=== PATIENT | male | born 1965 | race Caucasian/White ===

== ENCOUNTER 2017-09-19 05:53 | Observation (INO) | payer BC ==
[2017-09-19 06:45] LABS: Basophils # (A) 0.1 k/uL (0-0.2); Basophils % (A) 1 %; CH 30.8; CHCM 34.3; Eosinophils # (A) 0.2 k/uL (0-0.7); Eosinophils % (A) 2 %; HCT 47.9 % (39.0-53.0); HDW 2.45; HGB 15.9 gm/dL (13.0-17.5); Luc # (Auto) 0.11; Luc % (Auto) 1; Lymphocytes # (A) 1.8 k/uL (1.0-4.8); Lymphocytes % (A) 21 %; MCHC 33.3 g/dL (31.0-37.0); MCV 90.3 fL (80.0-100.0); Mean Platelet Volume 8.4; Monocytes # (A) 0.5 k/uL (0-1.0); Monocytes % (A) 6 %; Neutrophils # (A) 6.2 k/uL (1.3-7.7); Neutrophils % (A) 70 %; RDW 14.4 % (11.5-15.5); WBC 8.8 k/uL (3.8-10.6); WBC (Perox) 8.74
--- NOTE | 2017-09-19 06:45 | ED ---
Anxiety HPI - General Source: patient Mode of arrival: wheelchair - History of Present Illness MD Complaint: anxiety, other Onset/Timin -: hour(s) Symptoms: extremity numbness/tingling, sense of impending doom Place: home Previous History of Same: Yes Severity: moderate Quality: constant Provoking factors: none known Improves With: nothing Worsens With: nothing Associated symptoms: chest pain <Alok Ibrahim - Last Filed: 09/19/17 06:41> <Nikolay Varela - Last Filed: 09/19/17 09:42> - General Chief Complaint: Anxiety Stated Complaint: Chest Pain Time Seen by Provider: 09/19/17 06:21 - History of Present Illness Initial Comments: this patient is a 52-year-old man who presents with complaint that he feels like he is having an anxiety attack. He states his symptoms started a little after 4 AM and he woke with them. He states that he is feeling shaky. He feels nervous. He states that he is been having this intermittently for a number of days previous. 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 the patient came here to be seen because he had similar symptoms one time and was told that he was having a heart attack. The patient denies anginal type symptoms, including no diaphoresis, dyspnea, nausea or vomiting, lightheadedness or syncope. He does feel like his chest is a little tight. He did take an Ativan at home without any change in symptoms. (Alok Ibrahim) - Related Data Home Medications: Home Medications Medication Instructions Recorded Confirmed LORazepam [Ativan] 2 mg PO BID PRN 12/29/15 09/19/17 Valsartan [Diovan] 160 mg PO DAILY 12/29/15 09/19/17 Atorvastatin [Lipitor] 40 mg PO HS 09/19/17 09/19/17 Metoprolol Tartrate [Lopressor] 50 mg PO DAILY 09/19/17 09/19/17 Allergies/Adverse Reactions: Allergies Allergy/AdvReac Type Severity Reaction Status Date / Time No Known Allergies Allergy Verified 09/19/17 07:33 Review of Systems ROS Other: All systems not noted in ROS Statement are negative. Constitutional: Denies: fever, chills Respiratory: Denies: cough, dyspnea, wheezes Cardiovascular: Reports: as per HPI, chest pain. Denies: palpitations, dyspnea on exertion, orthopnea, syncope Gastrointestinal: Denies: abdominal pain, nausea, vomiting Genitourinary: Denies: dysuria, hematuria Musculoskeletal: Denies: back pain Skin: Denies: rash Neurological: Denies: headache, weakness, numbness Psychiatric: Reports: anxiety <Alok Ibrahim - Last Filed: 09/19/17 06:41> ROS Other: All systems not noted in ROS Statement are negative. <VarelaNikolay - Last Filed: 09/19/17 09:42> ROS Statement: Those systems with pertinent positive or pertinent negative responses have been documented in the HPI. Past Medical History Past Medical History: Hyperlipidemia, Hypertension, Myocardial Infarction ([place]) Additional Past Medical History / Comment(s): MIGRAINES, STRESS TEST X2 WNL, SINUS PROBLEMS, UTI, SCOLIOSIS, CHRONIC BACK PAIN. Last Myocardial Infarction Date:: History of Any Multi-Drug Resistant Organisms: None Reported Past Surgical History: Heart Catheterization With Stent, Orthopedic Surgery Additional Past Surgical History / Comment(s): RT 5TH TOE SX CUT BONE AND RAISED IT UP, HEART CATH 3 STENTS. Past Anesthesia/Blood Transfusion Reactions: No Reported Reaction Date of Last Stent Placement:: 2013 Past Psychological History: Anxiety Smoking Status: Former smoker Past Alcohol Use History: Rare Past Drug Use History: Marijuana - Past Family History Father Family Medical History: Cancer Additional Family Medical History / Comment(s): LUNG CANCER Mother Family Medical History: Coronary Artery Disease (CAD), Diabetes Mellitus Additional Family Medical History / Comment(s): STENTS <Alok Ibrahim - Last Filed: 09/19/17 06:41> General Exam Limitations: no limitations General appearance: alert, in no apparent distress, anxious Head exam: Present: atraumatic, normocephalic Eye exam: Present: normal appearance. Absent: scleral icterus, conjunctival injection Respiratory exam: Present: normal lung sounds bilaterally. Absent: respiratory distress, wheezes, rales, rhonchi, stridor Cardiovascular Exam: Present: regular rate, normal rhythm, normal heart sounds. Absent: systolic murmur, diastolic murmur, rubs, gallop GI/Abdominal exam: Present: soft. Absent: distended, tenderness, guarding, rebound, mass Extremities exam: Present: normal inspection, normal capillary refill. Absent: pedal edema, calf tenderness Back exam: Absent: CVA tenderness (R), CVA tenderness (L) Neurological exam: Present: alert Psychiatric exam: Present: anxious Skin exam: Present: warm, dry, intact, normal color. Absent: rash <YanfabyAlok - Last Filed: 09/19/17 06:41> Vital Signs 09/19/17 09/19/17 09/19/17 05:57 06:45 08:00 Temperature 98.3 F Pulse Rate 99 91 90 Respiratory 20 18 18 Rate Blood Pressure 158/89 131/74 124/75 O2 Sat by Pulse 96 95 98 Oximetry 09/19/17 09:00 Temperature 98.0 F Pulse Rate 84 Respiratory 18 Rate Blood Pressure 116/74 O2 Sat by Pulse 98 Oximetry Medical Decision Making - EKG Data -: EKG Interpreted by [place] EKG shows normal: sinus rhythm, axis (normal), intervals (normal), QRS complexes (normal), ST-T waves (normal) Rate: tachycardia (rate approximately 105 bpm) <Alok Ibrahim - Last Filed: 09/19/17 06:41> - Lab Data Result diagrams: 09/19/17 06:00 09/19/17 06:00 <Nikolay Varela - Last Filed: 09/19/17 09:42> - Medical Decision Making Chest x-ray showed no acute abnormality. I will begin to reevaluate the patient patient stated that these are the exact symptoms she had when he had his previous heart attack and he required 3 stents at that time. I spoke with Dr. Bales I admitted the patient I wrote admitting orders I consult to cardiology. I started the patient on heparin. I continued heparin Nitropaste and aspirin on the floor. (Nikolay Varela) - Lab Data Lab Results 09/19/17 09/19/17 09/19/17 Range/Units 06:00 06:00 06:00 WBC 8.8 (3.8-10.6) k/uL RBC 5.30 (4.30-5.90) m/uL Hgb 15.9 (13.0-17.5) gm/dL Hct 47.9 (39.0-53.0) % MCV 90.3 (80.0-100.0) fL MCH 30.0 (25.0-35.0) pg MCHC 33.3 (31.0-37.0) g/dL RDW 14.4 (11.5-15.5) % Plt Count 351 (150-450) k/uL Neutrophils % 70 % Lymphocytes % 21 % Monocytes % 6 % Eosinophils % 2 % Basophils % 1 % Neutrophils # 6.2 (1.3-7.7) k/uL Lymphocytes # 1.8 (1.0-4.8) k/uL Monocytes # 0.5 (0-1.0) k/uL Eosinophils # 0.2 (0-0.7) k/uL Basophils # 0.1 (0-0.2) k/uL PT 10.4 (9.0-12.0) sec INR 1.0 (<1.2) APTT 24.9 (22.0-30.0) sec D-Dimer 0.37 (<0.60) mg/L FEU Sodium 138 (137-145) mmol/L Potassium 3.9 (3.5-5.1) mmol/L Chloride 103 (98-107) mmol/L Carbon Dioxide 22 (22-30) mmol/L Anion Gap 13 mmol/L BUN 9 (9-20) mg/dL Creatinine 1.06 (0.66-1.25) mg/dL Est GFR (MDRD) Af Amer >60 (>60 ml/min/1.73 sqM) Est GFR (MDRD) Non-Af >60 (>60 ml/min/1.73 sqM) Glucose 187 H (74-99) mg/dL Calcium 9.5 (8.4-10.2) mg/dL Magnesium 1.8 (1.6-2.3) mg/dL Total Bilirubin 0.6 (0.2-1.3) mg/dL AST 26 (17-59) U/L ALT 38 (21-72) U/L Alkaline Phosphatase 136 H (38-126) U/L Troponin I (0.000-0.034) ng/mL Total Protein 7.2 (6.3-8.2) g/dL Albumin 4.4 (3.5-5.0) g/dL 09/19/17 Range/Units 06:00 WBC (3.8-10.6) k/uL RBC (4.30-5.90) m/uL Hgb (13.0-17.5) gm/dL Hct (39.0-53.0) % MCV (80.0-100.0) fL MCH (25.0-35.0) pg MCHC (31.0-37.0) g/dL RDW (11.5-15.5) % Plt Count (150-450) k/uL Neutrophils % % Lymphocytes % % Monocytes % % Eosinophils % % Basophils % % Neutrophils # (1.3-7.7) k/uL Lymphocytes # (1.0-4.8) k/uL Monocytes # (0-1.0) k/uL Eosinophils # (0-0.7) k/uL Basophils # (0-0.2) k/uL PT (9.0-12.0) sec INR (<1.2) APTT (22.0-30.0) sec D-Dimer (<0.60) mg/L FEU Sodium (137-145) mmol/L Potassium (3.5-5.1) mmol/L Chloride (98-107) mmol/L Carbon Dioxide (22-30) mmol/L Anion Gap mmol/L BUN (9-20) mg/dL Creatinine (0.66-1.25) mg/dL Est GFR (MDRD) Af Amer (>60 ml/min/1.73 sqM) Est GFR (MDRD) Non-Af (>60 ml/min/1.73 sqM) Glucose (74-99) mg/dL Calcium (8.4-10.2) mg/dL Magnesium (1.6-2.3) mg/dL Total Bilirubin (0.2-1.3) mg/dL AST (17-59) U/L ALT (21-72) U/L Alkaline Phosphatase (38-126) U/L Troponin I <0.012 (0.000-0.034) ng/mL Total Protein (6.3-8.2) g/dL Albumin (3.5-5.0) g/dL Critical Care Time Critical Care Time: Yes Total Critical Care Time: 35 <Nikolay Varela - Last Filed: 09/19/17 09:42> Disposition <Alok Ibrahim - Last Filed: 09/19/17 06:41> Time of Disposition: 08:05 <Nikolay Varela - Last Filed: 09/19/17 09:42> Clinical Impression: Unstable angina Disposition: ADMITTED IP TO THIS HOSP
[2017-09-19 06:47] VITALS: RESP 18
[2017-09-19 06:53] LABS: ALT 38 U/L (21-72); AST 26 U/L (17-59); Alkaline Phosphatase 136 U/L (38-126); Anion Gap 13 mmol/L; Blood Urea Nitrogen 9 mg/dL (9-20); Calcium 9.5 mg/dL (8.4-10.2); Carbon Dioxide 22 mmol/L (22-30); Chloride 103 mmol/L (98-107); Glucose 187 mg/dL (74-99); Magnesium 1.8 mg/dL (1.6-2.3); Non-African American GFR(MDRD) >60 (>60 ml/min/1.73 sqM); Potassium 3.9 mmol/L (3.5-5.1); Sodium 138 mmol/L (137-145); Total Bilirubin 0.6 mg/dL (0.2-1.3); Total Protein 7.2 g/dL (6.3-8.2)
[2017-09-19 06:54] LABS: Partial Thromboplastin Time 24.9 sec (22.0-30.0); Prothrombin Time 10.4 sec (9.0-12.0)
--- NOTE | 2017-09-19 07:18 | XR ---
EXAM: XR Chest, 2 Views. CLINICAL HISTORY: Reason: Chest Pain TECHNIQUE: Frontal and lateral views of the chest. COMPARISON: 12/29/15 FINDINGS: Lungs: Unremarkable. No consolidation. Pleural spaces: Unremarkable. No pneumothorax. Heart: Unremarkable. No cardiomegaly. Mediastinum: Unremarkable. Bones: Unremarkable. No acute fracture. IMPRESSION: No acute findings in the chest
[2017-09-19] MEDS ORDERED: ASPIRIN 81 MG PO STA (08:09)
[2017-09-19] MEDS ORDERED: HEPARIN SODIUM,PORCINE 5,000 UNIT/ML 1 ML VIAL IV ONE (08:10)
[2017-09-19] MEDS ORDERED: NITROGLYCERIN OINT 1 INCH/GM PACKET TOPICAL STA (08:10)
[2017-09-19] MEDS ORDERED: HEPARIN SODIUM,PORCINE/D5W PMX 25,000 UNIT in DEXTROSE/WATER 1 500ML.BAG IV SCH (08:15)
[2017-09-19] MEDS ORDERED: NITROGLYCERIN SL TABS 0.4 MG TAB SUBLINGUAL PRN (08:54)
[2017-09-19] MEDS ORDERED: ASPIRIN 325 MG TAB PO SCH (09:00)
[2017-09-19 10:25] VITALS: BMI 24.3
[2017-09-19] MEDS ORDERED: NITROGLYCERIN OINT 1 INCH/GM PACKET TOPICAL SCH (12:00)
[2017-09-19 12:47] LABS: Creatine Kinase 122 U/L (55-170)
[2017-09-19] MEDS ORDERED: LORazepam 1 MG TAB PO PRN (12:59)
[2017-09-19 13:00] LABS: Creatine Kinase MB 1.2 ng/mL (0.0-2.4); Troponin I <0.012 ng/mL (0.000-0.034)
[2017-09-19] MEDS ORDERED: INFLUENZA VACCINE (6 MOS+) 60 MCG/0.5 ML SYRINGE IM ONE (14:54)
--- NOTE | 2017-09-19 16:04 | P.HPIM ---
History of Present Illness 52-year-old man came in with complaints of anxiety. Denied any chest pain patient [place] little anxious and nervous and the patient last and when he had similar symptoms was found to have microinfarction because of which patient came to ER. Patient was evaluated by cardiology second set of troponin will be obtained patient has sinus tachycardia and EKG which resolved now. Patient denied any fever, chills, nausea, vomiting patient is chest pain completely resolved after that episode patient was not diaphoretic but there is a shaking at that time denied any shortness of breath patient chest pain is nonpleuritic not associated with food. Review of Systems REVIEW OF SYSTEMS: CONSTITUTIONAL: No fever, no malaise, no fatigue. HEENT: No recent visual problems or hearing problems. Denied any sore throat. CARDIOVASCULAR: No chest pain, orthopnea, PND, no palpitations, no syncope. PULMONARY: No shortness of breath, no cough, no hemoptysis. GASTROINTESTINAL: No diarrhea, no nausea, no vomiting, no abdominal pain. Normoactive bowel sounds. NEUROLOGICAL: No headaches, no weakness, no numbness. HEMATOLOGICAL: Denies any bleeding or petechiae. GENITOURINARY: Denies any burning micturition, frequency, or urgency. MUSCULOSKELETAL/RHEUMATOLOGICAL: Denies any joint pain, swelling, or any muscle pain. ENDOCRINE: Denies any polyuria or polydipsia. The rest of the 14-point review of systems is negative. Past Medical History Past Medical History: Hyperlipidemia, Hypertension, Myocardial Infarction ([place]) Additional Past Medical History / Comment(s): MIGRAINES, STRESS TEST X2 WNL, SINUS PROBLEMS, UTI, SCOLIOSIS, CHRONIC BACK PAIN. Last Myocardial Infarction Date:: History of Any Multi-Drug Resistant Organisms: None Reported Past Surgical History: Heart Catheterization With Stent, Orthopedic Surgery Additional Past Surgical History / Comment(s): RT 5TH TOE SX CUT BONE AND RAISED IT UP, HEART CATH 3 STENTS. neck fusion Past Anesthesia/Blood Transfusion Reactions: No Reported Reaction Date of Last Stent Placement:: 2013 Past Psychological History: Anxiety Smoking Status: Former smoker Past Alcohol Use History: Rare Additional Past Alcohol Use History / Comment(s): STARTED SMOKING AT GE 18 SMOKED 1 PPD, QUIT 2000 Past Drug Use History: Marijuana Additional Drug Use History / Comment(s): MARIJUANA LAST USED -TODAY - Past Family History Father Family Medical History: Cancer Additional Family Medical History / Comment(s): LUNG CANCER Mother Family Medical History: Coronary Artery Disease (CAD), Diabetes Mellitus Additional Family Medical History / Comment(s): STENTS Medications and Allergies Home Medications Medication Instructions Recorded Confirmed Type LORazepam [Ativan] 2 mg PO BID PRN 12/29/15 09/19/17 History Valsartan [Diovan] 160 mg PO DAILY 12/29/15 09/19/17 History Atorvastatin [Lipitor] 40 mg PO HS 09/19/17 09/19/17 History Sertraline [Zoloft] 50 mg PO DAILY 09/19/17 09/19/17 History Allergies Allergy/AdvReac Type Severity Reaction Status Date / Time No Known Allergies Allergy Verified 09/19/17 07:33 Physical Exam Vitals: Vital Signs Temp Pulse Pulse Resp BP BP Pulse Ox 09/19/17 11:06 98 09/19/17 09:54 98.0 F 88 18 118/70 95 09/19/17 09:00 98.0 F 84 18 116/74 98 09/19/17 08:00 90 18 124/75 98 09/19/17 06:45 91 18 131/74 95 09/19/17 05:57 98.3 F 99 20 158/89 96 Intake and Output 09/19/17 09/19/17 09/19/17 06:59 14:59 22:59 Intake Total 360 Balance 360 Intake: Oral 360 Other: Voiding Method Toilet # Voids 1 Weight 83.915 kg 86 kg Patient Weight 09/20/17 06:59 Weight 86 kg PHYSICAL EXAMINATION: GENERAL: The patient is alert and oriented x3, not in any acute distress. Well developed, well nourished. HEENT: Pupils are round and equally reacting to light. EOMI. No scleral icterus. No conjunctival pallor. Normocephalic, atraumatic. No pharyngeal erythema. No thyromegaly. CARDIOVASCULAR: S1 and S2 present. No murmurs, rubs, or gallops. PULMONARY: Chest is clear to auscultation, no wheezing or crackles. ABDOMEN: Soft, nontender, nondistended, normoactive bowel sounds. No palpable organomegaly. MUSCULOSKELETAL: No joint swelling or deformity. EXTREMITIES: No cyanosis, clubbing, or pedal edema. NEUROLOGICAL: Gross neurological examination did not reveal any focal deficits. SKIN: No rashes. Results CBC & Chem 7: 09/19/17 06:00 09/19/17 06:00 Labs: Abnormal Lab Results - Last 24 Hours (Table) 09/19/17 09/19/17 Range/Units 06:00 15:37 APTT 49.4 H (22.0-30.0) sec Glucose 187 H (74-99) mg/dL Alkaline Phosphatase 136 H (38-126) U/L Thrombosis Risk Factor Assmnt - Choose All That Apply Any of the Below Risk Factors Present?: Yes Each Factor Represents 1 point: Age 41-60 years Other Risk Factors: No Thrombosis Risk Factor Assessment Total Risk Factor Score: 1 Thrombosis Risk Factor Assessment Level: Low Risk Assessment and Plan Plan: #1 an episode of anxiety: Because of the above-mentioned reasons and patient consents patient was admitted for rule out acute coronary syndromes was a valid by cardiology rule out. Unstable angina, decision regarding stress test as per cardiology. #2 coronary artery disease never #3 hypertension #4 anxiety disorder Above mentioned chronic medical problems patient will be continued on home medications.
[2017-09-19] MEDS: ONDANSETRON 4 MG/2 ML VIAL IVP PRN (17:33)
--- NOTE | 2017-09-19 18:25 | CONS ---
CONSULTATION Mr. Pineda is a 52-year-old male with a known history of coronary artery disease who presented with symptoms of shakiness and anxiety that occurred during the night. His cardiac history is remarkable for the fact that in November 2013 he underwent stenting of his proximal ramus intermedius, distal circumflex using drug-eluting stent. He has done well from the cardiac standpoint and underwent a stress test most recently in December 2015 that showed no evidence of stress-induced ischemia. He woke up feeling shaky, anxious, but did not have any associated chest discomfort. He did not have any symptoms of dyspnea, dizziness or palpitation. He is quite active physically without any significant symptoms. His coronary risk factors are positive for hypertension, hyperlipidemia and a family history of premature coronary disease. MEDICATIONS AT HOME: 1. Aspirin. 2. Diovan 160 mg daily. 3. Lipitor 40 mg daily. 4. Ativan. 5. Zoloft. REVIEW OF SYSTEMS: RESPIRATORY SYSTEM: He has no recent wheezing. No cough. No history of obstructive lung disease. GI SYSTEM: No recent GI bleed. No peptic ulcer disease. SYSTEM: No dysuria or hematuria. NERVOUS SYSTEM: No history of stroke or seizure. PHYSICAL EXAMINATION: He is a 52-year-old male, alert, oriented, in no apparent distress. Blood pressure 109/56 with a heart rate in the 80s. HEAD: Normocephalic. EYES: Sclerae anicteric. NECK: Good carotid upstroke. No bruit. No jugular venous distention. LUNGS: Clear to auscultation. HEART: Regular rate and rhythm. S1, S2. No S3. No rub. Systolic murmur at the base, ejection type. No diastolic murmur. No rub. ABDOMEN: Soft, nontender. EXTREMITIES: No edema. LAB DATA: Troponin less than 0.012. BUN and creatinine of 9 and 1.06. Hemoglobin of 15.9. EKG revealed sinus mechanism, normal axis and intervals, rate of 105 with no acute changes. IMPRESSION: 1. Symptoms of anxiety, atypical for ischemic heart disease. 2. Prior history of coronary artery disease with stenting, stable. 3. History of hypertension. 4. Hyperlipidemia. RECOMMENDATION: I will await the rest of his lab data. If there is no evidence of abnormality, then I will stop his heparin and proceed with myocardial perfusion imaging to evaluate his status and guide his treatment. The rationale behind the procedure, its risks and complication were discussed with the patient, who is in full understanding and agreement. Thank you for this consult. Will follow with you. MMBARONL / IJN: [id number] /
[2017-09-19 19:24] LABS: Creatine Kinase 105 U/L (55-170)
[2017-09-19 19:35] LABS: Creatine Kinase MB 0.9 ng/mL (0.0-2.4); Troponin I <0.012 ng/mL (0.000-0.034)
[2017-09-19] MEDS ORDERED: ATORVASTATIN 40 MG TAB PO SCH (21:00)
[2017-09-20] MEDS: ONDANSETRON 4 MG/2 ML VIAL IVP PRN (05:43)
[2017-09-20 06:20] LABS: Cholesterol 102 mg/dL (<200); HDL Cholesterol 31 mg/dL (40-60)
[2017-09-20 07:57] VITALS: TEMP 98
[2017-09-20] MEDS ORDERED: DOBUTamine DRIP for NUC MED 500 MG in DEXTROSE/WATER 1 250ML.BAG IV ONE (08:26)
[2017-09-20] MEDS ORDERED: VALSARTAN 160 MG TAB PO SCH (09:00)
[2017-09-20] MEDS ORDERED: SERTRALINE 50 MG TAB PO SCH (09:00)
[2017-09-20] MEDS ORDERED: ASPIRIN 325 MG TAB PO SCH (09:00)
[2017-09-20] MEDS ORDERED: ONDANSETRON 4 MG/2 ML VIAL IVP STA (09:22)
--- NOTE | 2017-09-20 11:38 | P.PN ---
Subjective Progress Note Date: 09/20/17 Mr. Pineda is seen today in follow-up. Past medical hisotry significant for known coronary artery disease with stent placement in 2013 of proximal ramus intermedius and distal circumflex, hypertension and hyperlipidemia. He denies any episode of chest pain, shortness of breath, dizziness or palpitations since admission. He complains of ongoing nausea with no vomiting. He has been up ambulating in the halls and back and forth to the bathroom. Cardiac enzymes are negative x3. Blood pressure 140/74 with heart rate 74. Objective - Vital Signs Vital signs: Vital Signs Temp 98 F 09/20/17 07:56 Pulse 74 09/20/17 07:56 Resp 18 09/20/17 07:56 BP 140/74 09/20/17 07:56 Pulse Ox 93 L 09/20/17 07:56 Intake & Output 09/19/17 09/20/17 09/20/17 18:59 06:59 18:59 Intake Total 1060 0 Balance 1060 0 Weight 86 kg Intake: Oral 660 0 Other 400 Other: Voiding Method Toilet Toilet # Voids 1 - Exam GENERAL: Well-appearing, well-nourished and in no acute distress. NECK: Supple without JVD or thyromegaly. LUNGS: Breath sounds clear to auscultation bilaterally. Respiration equal and unlabored. No wheezes, rales or rhonchi. HEART: Regular rate and rhythm with systolic ejection murmur at the base, no rubs or gallops. S1 and S2 heard. EXTREMITIES: Normal range of motion, no edema. No clubbing or cyanosis. Peripheral pulses intact and strong. - Labs CBC & Chem 7: 09/19/17 06:00 09/19/17 06:00 Labs: Abnormal Lab Results - Last 24 Hours (Table) 09/19/17 09/20/17 09/20/17 Range/Units 15:37 05:38 05:38 APTT 49.4 H 39.8 H (22.0-30.0) sec HDL Cholesterol 31 L (40-60) mg/dL Assessment and Plan Assessment: ASSESSMENT 1. Symptoms of anxiety, atypical for ischemic heart disease 2. History of CAD with stenting, stable 3. Hypertension 4. Hyperlipidemia PLAN Cardiac enzymes are negative x3 which rules out an acute coronary event at this time. Heparin can be discontinued and proceed with exercise stress echocardiogram and full echocardiogram to assess cardiac structure and function. If this testing is unremarkable he can follow up with Dr. Hawley in 3 weeks. Nurse Practitioner note has been reviewed, I agree with a documented findings and plan of care. Patient was seen and examined.
[2017-09-20 11:52] VITALS: BP 155/88; PULSE 80
--- NOTE | 2017-09-20 12:49 | ECHOS ---
Referral Reason:chest pain MEASUREMENTS -------- HEIGHT: 0.0 cm WEIGHT: 0.0 kg BP: FINDINGS -------- The patient received intravenous dobutamine in 5 min (low dose 5mcg/kg/min) and 3 minute stages II (>5mcg/kg/min) to a maximum of 8 mg/kg/min plus XX mg atropine. Max Heart Rate: 145 % of Max Predicted Heart Rate: 86 Rest Heart Rate: 84 Rest BP: 127/57 Max BP: 149/56 Mets Achieved: Sinus rhythm. In response to stress, the ECG showed no ST-T wave changes . Occasional PVC's In response to stress, the ECG showed no ST-T wave changes . There were normal blood pressure and heart rate responses to stress. Inferio basal hypokinesis. At recovery dobutamine stress no new regional wall motion abnormalities were identified. Baseline abnormalities persist. CONCLUSIONS -------- 1. The patient received intravenous dobutamine in 5 min (low dose 5mcg/kg/min) and 3 minute stages II (>5mcg/kg/min) to a maximum of 8 mg/kg/min plus XX mg atropine. 2. Occasional PVC's 3. In response to stress, the ECG showed no ST-T wave changes . 4. Infero basal hypokinesis at baseline . 5. 2D echocardiographic evidence of prior myocardial infarction without inducible ischemia to achieved workload. LPN CARE MANAGER: Tere Calixto RDCS MTDD
--- NOTE | 2017-09-20 15:51 | P.DS ---
Providers Date of admission: 09/19/17 08:54 Attending physician: Jak Bales Consults: 09/19/17 08:54 Consult Physician Urgent Consulting Provider: [facility] Consult Reason/Comments: Unstable angina Do you want consulting provider notified?: Yes Primary care physician: Mirta Lambert [facility] Course: patient was admitted for rule out acute coronary syndromes patient's symptoms of as a result of anxiety disorder patient underwent stress test which was negative patient is being discharged today in stable medical condition to home. All his present medical problems and management please refer to my HPI from yesterday. PHYSICAL EXAMINATION: GENERAL: The patient is alert and oriented x3, not in any acute distress. Well developed, well nourished. HEENT: Pupils are round and equally reacting to light. EOMI. No scleral icterus. No conjunctival pallor. Normocephalic, atraumatic. No pharyngeal erythema. No thyromegaly. CARDIOVASCULAR: S1 and S2 present. No murmurs, rubs, or gallops. PULMONARY: Chest is clear to auscultation, no wheezing or crackles. ABDOMEN: Soft, nontender, nondistended, normoactive bowel sounds. No palpable organomegaly. MUSCULOSKELETAL: No joint swelling or deformity. EXTREMITIES: No cyanosis, clubbing, or pedal edema. NEUROLOGICAL: Gross neurological examination did not reveal any focal deficits. SKIN: No rashes. Plan - Discharge Summary New Discharge Prescriptions: No Action LORazepam [Ativan] 2 mg PO BID PRN PRN Reason: Anxiety Valsartan [Diovan] 160 mg PO DAILY Atorvastatin [Lipitor] 40 mg PO HS Sertraline [Zoloft] 50 mg PO DAILY Discharge Medication List LORazepam [Ativan] 2 mg PO BID PRN 12/29/15 [History] Valsartan [Diovan] 160 mg PO DAILY 12/29/15 [History] Atorvastatin [Lipitor] 40 mg PO HS 09/19/17 [History] Sertraline [Zoloft] 50 mg PO DAILY 09/19/17 [History] Follow up Appointment(s)/Referral(s): Cody Hawley MD [STAFF PHYSICIAN] - 10/02/17 10:15 am Mirta Lambert III, MD [Primary Care Provider] - 3 Days (PLEASE CALL FOR FOLLOW UP APPOINTMENT ) Patient Instructions/Handouts: Generalized Anxiety Disorder (ED) Activity/Diet/Wound Care/Special Instructions: REGULAR DIET, CONTINUE HEART HEALTHY CHOICES EASE BACK INTO NORMAL ACTIVITY KEEP FOLLOW UP APPOINTMENTS, NO CHANGES TO HOME MEDICATIONS RETURN TO ER IF YOU DEVELOP CHEST PAIN, SHORTNESS OF BREATH, NUMBNESS/PAIN DOWN YOUR ARMS, DIZZINESS. Discharge Disposition: HOME SELF-CARE
--- NOTE | 2017-09-27 14:09 | ECHOF ---
Referral Reason:cad MEASUREMENTS -------- HEIGHT: 188.0 cm WEIGHT: 85.7 kg BP: 142/72 IVSd: 1.2 cm (0.6 - 1.1) LVIDd: 4.2 cm (3.9 - 5.3) LVPWd: 1.2 cm (0.6 - 1.1) IVSs: 1.5 cm LVIDs: 3.2 cm LVPWs: 1.3 cm LAESV Index (A-L): 20.39 ml/m Ao Diam: 3.6 cm (2.0 - 3.7) AV Cusp: 2.4 cm (1.5 - 2.6) LA Diam: 3.0 cm (2.7 - 3.8) MV E Jimbo: 0.82 m/s MV DecT: 283 ms MV A Jimbo: 0.79 m/s MV E/A Ratio: 1.04 RAP: 5.00 mmHg RVSP: 10.19 mmHg FINDINGS -------- Sinus rhythm. This was a technically adequate study. The left ventricular size is normal. There is mild concentric left ventricular hypertrophy. Overa ll left ventricular systolic function is normal with, an EF between 55 - 60 %. The right ventricle is normal in size and function. Normal LA size by volume 22+/-6 ml/m2. The right atrium is normal in size. The aortic valve is trileaflet, and appears structurally normal. No aortic stenosis or regurgitation. The mitral valve is normal. [id number] mitral regurgitation is present. No regurgitation noted Right ventricular systolic pressure is normal at < 35 mmHg. Trace/mild (physiologic) pulmonic regurgitation. The aortic root size is normal. IVC Not well visulized. There is no pericardial effusion. CONCLUSIONS -------- 1. Sinus rhythm. 2. This was a technically adequate study. 3. There is mild concentric left ventricular hypertrophy. 4. Overall left ventricular systolic function is normal with, an EF between 55 - 60 %. 5. Normal LA size by volume 22+/-6 ml/m2. 6. The aortic valve is trileaflet, and appears structurally normal. No aortic stenosis or regurgitati on. 7. [id number] mitral regurgitation is present. 8. No regurgitation noted 9. Right ventricular systolic pressure is normal at < 35 mmHg. 10. Trace/mild (physiologic) pulmonic regurgitation. 11. The aortic root size is normal. 12. IVC Not well visulized. 13. There is no pericardial effusion. SPECIAL POLICE: Jose Luis Julio RDCS
== END 2017-09-20 15:35 | disposition home or self-care (01) ==
LOC: EC 05:53 → 3OBS 08:54
PROVIDERS: ADMIT Hospitalist; ATTEND Hospitalist
DX: F41.9 Anxiety disorder, unspecified (principal); I25.10 Atherosclerotic heart disease of native coronary artery without angina pectoris; I10 Essential (primary) hypertension; E78.5 Hyperlipidemia, unspecified; F12.90 Cannabis use, unspecified, uncomplicated; Z79.899 Other long term (current) drug therapy; I25.2 Old myocardial infarction; Z95.5 Presence of coronary angioplasty implant and graft; Z87.891 Personal history of nicotine dependence; Z82.49 Family history of ischemic heart disease and other diseases of the circulatory system; Z23 Encounter for immunization
CPT/HCPCS: 99284 ×2; 96365 ×2; 96366 ×2; 96375; 96376 ×2; 36415; 93005; 93017; 93306; 93350; 85379; 80061; 80053; 84443; 82550; 82553; 83735; 84484; 85025; 85610; 85730 ×2; 71020; 90686; G0378 ×2; G0008; J1250; J1644 ×2; J2405 ×2

== ENCOUNTER → 2022-01-16 | Outpatient (CLI) | payer OTHER ==
--- NOTE | 2022-01-16 17:17 | XR ---
EXAMINATION TYPE: XR scoliosis survey DATE OF EXAM: 01/16/2022 COMPARISON: None HISTORY: Scoliosis abnormal physical findings TECHNIQUE: AP and lateral views of the thoracolumbar spine were obtained. FINDINGS: On the lateral projection there is exaggeration of the thoracolumbar junction kyphosis. As measured between T11 and L4 there is a 32 degree scoliosis with the convexity to the right centere d at L1. IMPRESSION: 1. 32 degree scoliosis centered at L1 thoracolumbar spine
== END | disposition home or self-care (01) ==
LOC: RADXRMAIN 13:15
PROVIDERS: ATTEND Neurological Surgery
DX: M41.85 Other forms of scoliosis, thoracolumbar region (principal)
CPT/HCPCS: 72082

== ENCOUNTER → 2022-01-26 | Outpatient (CLI) | payer BC, OTHER ==
--- NOTE | 2022-01-26 12:04 | P.CON ---
Consult Note - . 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 Eason presents today with lower back pain progressively worsening over 15 years for evaluation. Patient states his lower back pain a 6 out of 10 in intensity, constant, dull, achy, shooting up and down the lumbar spine with occasional radiation of pain left and right of midline to the paraspinal muscles bilaterally. Patient denies tingling, numbness, weakness of the lower extremities though he has lost his balance approximately 3 times when standing from a sitting position. Pain is exacerbated with flexion, lifting and extension. Pain is relieved with medications, topical Voltaren gel, heat, physical therapy 2 years ago which made it worse, home stretching regimen on a weekly basis, occasional massage and rest. Past Medical History: Hyperlipidemia, Hypertension, Myocardial Infarction (CA in 2013), Anxiety Past Surgical History: Heart Catheterization With Stent x 3 (last in 2013), Cervical Fusion, R 5th Toe Surgery Social History: Former Tobacco User (started in 1982, stopped in 2000). +Cannabis Use. Occassional ETOH use. Past Drug Use History: Marijuana Family History: Father- Lung CA. Mother- CAD, DM. All: NKDA Meds: See list REVIEW OF ORGAN SYSTEMS: CONSTITUTIONAL: No fevers or chills. No recent weight loss. HEENT: No visual acuity loss, eye pain, difficulties with hearing. No nosebleeds. No difficulty swallowing. RESPIRATORY: Denies any troubles with breathing or dyspnea on exertion. CARDIOVASCULAR: Denies any chest pain, palpitations, or recent heart attacks. GASTROINTESTINAL: Denies fatty food intolerance. Has change in bowel habits and gas bloat. GENITOURINARY: Denies any blood in urine. Has increased urinary frequency. NEUROLOGICAL: + numbness and tingling along the distal extremities. No seizure disorders or headaches. MUSCULOSKELETAL: + back pain SKIN: No skin cancer. No rash. PSYCHIATRIC: Denies current depression or suicidal thoughts. ENDOCRINE: Denies current thyroid disorders. Denies any blood sugar glucose intolerance. HEME/LYMPHATIC: Denies any lumps and bumps around the neck. History of deep venous thrombosis. ALLERGY/IMMUNOLOGY: No immunoglobulin therapy. No immune deficiencies. BREAST: Denies current breast lumps, pain or nipple discharge. Physical Examinations : Constitutional : Cooperative , not in acute distress . HEENT: Neck supple. No Lymphadenopathy. Normal thyroid size . Eyes no ptosis , no icterus, no photophobia . Hearing intact. Normal oropharynx. No Thrush. Respiratory : Chest clear to auscultations bilaterally. No wheezing. No rhonchi. Cardiovascular : Regular rate and rhythm , S1 / S2. No S3 . No S4. Gastrointestinal : Abdomen soft. No tenderness. Bowel sounds x 4. No organomegaly . Genitourinary : Deferred. Neurologic : Cranial nerve II to XII intact. No focal neurological deficits. Psychiatric : alert & oriented x 3. Matching mood & appropriate affect. Judgment & insight intact. Lymphatic No Lymphadenopathy. Musculoskeletal : Cervical Spine Motor strength in the deltoid and biceps: Normal right side. Normal Left side Motor strength biceps and the wrist extensors: Normal right side . Normal left side Motor strength in the triceps muscle: Normal right side. Normal left side Deep tendon reflexes: Normal at the biceps. Normal at Brachioradialis. Normal at triceps Cervical facet loading test: positive bilaterally Spurling test: positive bilaterally Neck distraction test: positive bilaterally Annika sign: positive bilaterally Lumbar spine Motor strength lower extremities ,thigh and legs 5/5 Right side , 5/5 Left side Deep tendon reflexes : Normal Knee Jerk. Normal Ankle Jerk Vertebral body tenderness over Lumbar facet Loading Test: positive Right / positive Left L3-L4, L4-L5. R Paraspinal muscle spasms. Range of motion of the lumbar spine Flexion 30 degrees, extension 10 degrees Straight Leg Raise test: Left/ Right positive at degree Radha test: positive right / positive left. Severe tenderness over the Sacroiliac joint on the Right / Left sides Gaenslen test: positive bilaterally Seated flexion test: positive bilaterally. Assessment/ Plan : Recommendation of the facet blocks of the medial branches bilateral L3-L4, L4- L5. May need a series of injections up through RFA to obtain optimal pain relief, if indicated. Risks, benefits of procedure discussed and patient verbalized understanding. Admits to Plavix use. Denies medical history of diabetes mellitus. All questions answered. I have spent greater than 50 minutes on patient care today. Dr Medina was available by phone for the evaluation of this patient. The time was used to review the medical records including relevant urine studies and Prescription history (MAPs), review of the available imaging, evaluation and examination of the patient, coordination of care with the medical staff and if applicable referring physicians, as well as creation of the medical record PQRS Measure Charge Sheet PQRS Narrative: Smoking Status Former smoker Pain Intensity [Lower Back] 5 Scale Used Numeric (1 - 10) Hx Alcohol Use (MH) Yes Home Medications: Ambulatory Orders LORazepam [Ativan] 2 mg PO BID PRN 12/29/15 Valsartan [Diovan] 160 mg PO DAILY 12/29/15 Atorvastatin [Lipitor] 40 mg PO HS 09/19/17 Sertraline [Zoloft] 50 mg PO DAILY 09/19/17
[2022-01-26 16:14] VITALS: BP 161/82; PULSE 77; RESP 18
== END ==
LOC: PNWHC3 10:34
PROVIDERS: ATTEND Physician Assistant Medical
DX: M51.26 Other intervertebral disc displacement, lumbar region (principal); E78.5 Hyperlipidemia, unspecified; I10 Essential (primary) hypertension; I25.2 Old myocardial infarction; F41.9 Anxiety disorder, unspecified; Z87.891 Personal history of nicotine dependence
CPT/HCPCS: 99211

== ENCOUNTER → 2022-02-01 | Outpatient (CLI) | payer OTHER ==
--- NOTE | 2022-02-01 12:52 | MR ---
EXAMINATION TYPE: MR cervical spine wo con DATE OF EXAM: 02/01/2022 11:26 AM COMPARISON: NONE HISTORY: Ataxia Multiplanar MultiSpin echo imaging of the cervical spine was performed. Comparison: none C2-C3: No evidence for degenerative disc disease. No disc bulge/herniation or protrusion. No Canal stenosis. Foramina are patent bilaterally. C3-C4: Decreased signal and loss of height compatible with degenerative disc disease. Posterior disc bulging with encapsulating spur resulting in hard disc greatest posterior centrally and to the right. Mild effacement of the ventral thecal sac without definite central stenosis. Patient motion does cosme it evaluation. Degenerative change of the bilateral cervical apophyseal joints resulting in foraminal encroachment bilaterally left greater than right. C4-C5: Mild disc desiccation. Mild posterior disc bulge. Minimal effacement ventral thecal sac. No he rniation or protrusion. No central stenosis. Bilateral foramina are patent. C5-C6: ACDF changes noted at this level. Anterior fixation device. Blooming artifact limits evaluatio n. Posterior ridging noted with mild effacement of the ventral thecal sac. No central stenosis apprec iated. Foraminal encroachment left greater than right. C6-C7: No evidence for degenerative disc disease. No disc bulge/herniation or protrusion. No Canal stenosis. Foramina are patent bilaterally. C7-T1: No evidence for degenerative disc disease. No disc bulge/herniation or protrusion. No Canal stenosis. Foramina are patent bilaterally. Cervical segments are intact. There is normal alignment. Cervical spinal cord is of normal signal. Craniovertebral junction relationships are within normal limits. IMPRESSION: 1. Degenerative disc disease as discussed. 2. Hard disc noted at C3-4 mild effacement ventral thecal sac. Bilateral foraminal encroachment as no river above. 3. ACDF changes at C5-6 with normal alignment. Posterior ridging without central stenosis.
== END | disposition home or self-care (01) ==
LOC: RADMRIMAIN 10:35
PROVIDERS: ATTEND Neurological Surgery
DX: M50.31 Other cervical disc degeneration, high cervical region (principal); Z98.1 Arthrodesis status
CPT/HCPCS: 72141

== ENCOUNTER 2022-03-02 12:38 | Day surgery (SDC) | payer OTHER ==
[2022-03-01 09:35] VITALS: BMI 24.0
[~2022-03-02 12:38] MED LIST: LACTATED RINGERS 1,000 ML IV SCH
[2022-03-02 13:06] VITALS: TEMP 98
[2022-03-02] MEDS ORDERED: ROPIVACAINE 5MG/ML 20ML VIAL ONE (13:53)
[2022-03-02] MEDS ORDERED: TRIAMCINOLONE ACETONIDE 40 MG/ML 1 ML VIAL ONE (13:53)
[2022-03-02] MEDS ORDERED: MIDAZOLAM 2 MG/2 ML VIAL ONE (13:53)
--- NOTE | 2022-03-02 14:09 | P.PCN ---
Date of Procedure: 03/02/22 Description of Procedure: Pre- and Post-operative Diagnosis: Lumbar facet arthropathy, and lumbar spondylosis without myelopathy. Procedure: #1 Diagnostic Medial Branch Block at bilateral Lumbar 4/5 and #1 diagnostic dorsal ramus block at Lumbar 5/ sacral ala levels (total 4 levels) Surgeon: Zohra Villarreal Anesthesia: Local: 1% Lidocaine, IV sedation : Versed 2 mg Complications: None EBL: None Specimen removed: None Fluoroscopic image: Saved to patient electronic medical records. Indications for Procedure: The patient is well known to pain clinic for his chronic low back pain management. The lumbar facet loading test was positive wit h a clinical diagnosis of lumbar facet arthropathy. Failed with conservative therapy. Came here for interventional help for better pain relief. Procedure and Findings: The patient was seen and examined. The written informed consent was obtained after explaining the risks, benefits and alternatives of the procedure to the patient. The patient was brought to the procedure room and was placed in the prone position on the operating table table. A pillow was placed under the abdomen to reduce lumbar lordosis. Standard anesthesia monitoring was done through out the procedure. The skin preparation was done with ChloraPrep, and draping was done in usual sterile fashion. Sterile technique was observed throughout the procedure. Under fluoroscopic guidance, right the Lumbar 4, 5 and Sacral ala levels were identified in the AP view. For lumbar L4, and L5 levels the targeting area of superior articular process, and close to the most medial and superior aspect of transverse process identified, marked. 1ml of 1% Lidocaine was used with a 25 gauge needle to achieve adequate local anesthesia of the skin and subcutaneous tissue at each level. A 22 gauge 3.5 inch spinal needle was placed and advanced targeting area which was close to the most medial and superior aspect of the transverse process. For Lumbar 5/ sacral ala level, fluoroscope was used in the anteroposterior view, and the needle tip was placed at the superior and most medial part of sacral ala close to the superior articular process. A bony contact was obtained and needle tip position was confirmed at anteroposterior view. No paresthesia was noted. A negative aspiration was confirmed. 1 ml solution per level was injected, the block solution containing 5 ml of 0.5% ropivacaine preservative-free solution mixed with 40 MG of Kenalog. The needles were removed intact. Entire procedure repeated on the left side. Lumbar area was cleaned and bandages were applied. Disposition : The patient tolerated the procedure very well. The patient was transferred to the recovery room and remained stable until discharged home. The patient was given detailed discharge instructions for infection, bleeding, and increased pain at the injection site, and was advised to seek immediate medical attention should significant side effects develop. The patient will be scheduled with Pain Clinic within 4 weeks for repeat procedure if it's helpful.
[2022-03-02] MEDS ORDERED: IV FLUID CONTINUATION 800 ML IV ONE (14:13)
[2022-03-02 14:14] VITALS: RESP 16
[2022-03-02 14:31] VITALS: BP 122/74; PULSE 67
--- NOTE | 2022-03-02 14:33 | FL ---
EXAMINATION TYPE: FL guided pain mgmt statistic DATE OF EXAM: 03/02/2022 CLINICAL HISTORY: Bilateral facet block TECHNIQUE: Fluoroscopic-guided bilateral lumbar facet block 3 levels COMPARISON: MRI dated 02/19/2015 FINDINGS: Fluoroscopic guidance was provided during the procedure. A total of 3 seconds of fluorosco pic time was utilized during the procedure and 2 spot images were acquired. IMPRESSION: As Above.
== END 2022-03-02 14:43 | disposition home or self-care (01) ==
LOC: ORPAIN 12:38
DX: M47.896 Other spondylosis, lumbar region (principal); M47.816 Spondylosis without myelopathy or radiculopathy, lumbar region
CPT/HCPCS: 64493; 64494; J2250; J3301; J2795

== ENCOUNTER → 2022-03-30 | Outpatient (CLI) | payer OTHER ==
[2022-03-30 10:46] VITALS: BP 155/90; PULSE 70; RESP 18
--- NOTE | 2022-03-30 10:48 | P.PN ---
Subjective Progress Note Date: 03/30/22 Principal diagnosis: A 50 yr old male with at side with a history of severe and chronic low back pain secondary to lumbar degenerative disc diseases and lumbar spondylosis with facet arthropathy presents today for evaluation status post facet blocks medial branches L4-L5, L5-S1 #1. He states he expressed 100% pain relief for 3 days status post procedure. Pain level is currently at 5 out of 10 in intensity, localized to the lower aspect of the lumbar spine where it meets the tailbone, sharp in character with radiation of pain down the lower extremities to the feet. Pain escalates as high as 10 out of 10 in intensity with bending, twisting, stooping or lifting. Pain is alleviated with medications, topicals, physical therapy integrated with massage in the past which provided no relief, chiropractic treatments in the past which provided no relief, daily home str etching regimen as tolerated and rest. Interventional pain procedures completed include several blocks of the medial branches L3-L5 #1 Patient is currently on Tylenol OTC Patient denies any side effects of the medication(s), denies excessive drowsiness or sleepiness, denies suicidal ideation and reports that the current pain medication is helping to control the pain and improve activities of daily living. Patient denies any motor or sensory deficits. Patient denies any fever or night sweats, denies any change in the bowel movements or urination. Physical Examination: -Constitutional: Cooperative. Not in acute distress . -HEENT: Neck is supple. No lymphadenopathy. No thyromegaly. Normal thyroid size. Eyes: No ptosis , no icterus, no photophobia. ENT: No auditory deficits. Normal oropharynx. No Thrush. - Respiratory: Chest clear to auscultations bilaterally. No wheezing. No rhonchi. - Cardiovascular: Regular rate and rhythm. S1 / S2 , no S3 , no S4. - Gastrointestinal: Abdomen soft no tenderness. Bowel sounds positive in all four quadrants. No organomegaly. - Genitourinary: Deferred. - Neurologic: Cranial nerve II to XII intact. No focal neurological deficits. - Psychatric: Alert & oriented x 3. Matching mood & appropriate affect. Judgment and insight intact. - Lymphatic: No Lymphadenopathy. - Musculoskeletal: Cervical spine: Muscle bulk/ tone/ strength in the bilateral upper extremities normal. Facet loading test cervical area positive. Lumbar spine: Motor bulk/ tone/ strength lower extremities , thigh and legs : 5/5 Deep tendon reflexes : Normal Knee Jerk. Normal Ankle Jerk . Vertebral body tenderness to palpation over Lumbar Facet Loading Test positive over bilateral L3-L5 Straight Leg Raise: positive at 30 degrees right side/ left side Gaenslen's Test positive Sacral spine : Severe tenderness over the Sacroiliac joint: right side / left side Range of motion: Flexion of the lumbar spine <60 degrees Range of motion: Extension of the lumbar spine <20 degrees Gaenslen's Test positive Radha test: positive right side / left side Assessment and plan: Chronic low back pain secondary to lumbar degenerative disc disease , lumbar spondylosis with facet arthropathy without myelopathy Recommendation of facet blocks of the medial branches L4-L5, L5-S1 #2. Risks, benefits of procedure discussed and patient verbalized understanding. Denies anticoagulant use or medical history of diabetes. All patient questions answered I have spent 31 minutes on patient care today. Dr Medina was available by phone for the evaluation of this patient. The time was used to review the medical records including relevant urine studies and Prescription history (MAPs), review of the available imaging, evaluation and examination of the patient, coordination of care with the medical staff and if applicable referring physicians, as well as creation of the medical record PQRS Measure Charge Sheet PQRS Narrative: Smoking Status Current every day smoker Hx Alcohol Use (MH) No Home Medications: Ambulatory Orders Albuterol Inhaler (Mhu) [Ventolin Hfa Inhaler] 1 - 2 puff INHALATION RT-Q6H PRN 09/10/17 Atorvastatin [Lipitor] 80 mg PO DAILY #30 tab 09/12/17 Nitroglycerin Sl Tabs [Nitrostat] 0.4 mg SUBLINGUAL Q5M PRN #25 tab 09/12/17 Valproic Acid [Depakene] 500 mg PO BID 06/15/20 amLODIPine [Norvasc] 5 mg PO DAILY 06/15/20 diphenhydrAMINE [Benadryl] 25 mg PO HS 07/22/21 Amitriptyline HCl 50 mg PO HS 10/26/21 Metoprolol Tartrate [Lopressor] 12.5 mg PO BID 10/26/21 Naproxen Sodium [Aleve] 220 mg PO BID 01/04/22 methocarbamoL [Robaxin] 750 mg PO BID PRN 30 Days #60 tab 02/08/22 Objective - Vital Signs Vital signs: Vital Signs Temp Pulse 70 03/30/22 10:41 Resp 18 03/30/22 10:41 BP 155/90 03/30/22 10:41 Pulse Ox 97 03/30/22 10:41 Intake & Output 03/29/22 03/30/22 03/30/22 18:59 06:59 18:59 Weight 81.193 kg PQRS Measure Charge Sheet Mode of Arrival: Ambulatory - Pain Location Lower Back Non-Pharmacological Interventions: Heat, Home Exercise, Inactivity, Massage, Physical Therapy, Position/Reposition, Stretching Pharmacological Interventions: Block, PRN Medication, Topical Medication PQRS Narrative: Smoking Status Former smoker Blood Pressure 155/90 Pain Intensity [Lower Back] 5 Scale Used Numeric (1 - 10) Hx Alcohol Use (MH) No Home Medications: Ambulatory Orders LORazepam [Ativan] 2 mg PO BID PRN 12/29/15 Valsartan [Diovan] 160 mg PO DAILY 12/29/15 Atorvastatin [Lipitor] 40 mg PO HS 09/19/17 Sertraline [Zoloft] 50 mg PO DAILY 09/19/17
== END ==
LOC: PNWHC3 09:59
PROVIDERS: ATTEND Specialist
DX: M51.36 Other intervertebral disc degeneration, lumbar region (principal); M47.816 Spondylosis without myelopathy or radiculopathy, lumbar region; G89.29 Other chronic pain; F17.200 Nicotine dependence, unspecified, uncomplicated
CPT/HCPCS: 99211

== ENCOUNTER 2022-04-27 06:26 | Day surgery (SDC) | payer OTHER ==
[2022-04-27] MEDS ORDERED: LACTATED RINGERS 1,000 ML IV ONE (07:10)
[2022-04-27 07:15] VITALS: RESP 16; TEMP 98.1
[2022-04-27] MEDS ORDERED: fentaNYL (PF) 50 MCG/ML 2 ML AMP ONE (07:16)
[2022-04-27] MEDS ORDERED: MIDAZOLAM 2 MG/2 ML VIAL ONE (07:16)
[2022-04-27] MEDS ORDERED: methylPREDNISolone ACETATE 40 MG/ML 1 ML VIAL ONE (07:16)
[2022-04-27] MEDS ORDERED: ROPIVACAINE 5MG/ML 20ML VIAL ONE (07:16)
--- NOTE | 2022-04-27 07:37 | P.PCN ---
Date of Procedure: 04/27/22 Procedure(s) Performed: PREOPERATIVE DIAGNOSIS : 1- Lumbar spondylosis with Facet Arthropathy without myelopathy . 2- Lumber degenerative disc disease POSTOPERATIVE DIAGNOSIS: 1- Lumbar spondylosis with Facet Arthropathy without myelopathy . 2- Lumber degenerative disc disease PROCEDURE: Diagnostic bilateral L3 , L4 , and L5 medial branch block under fluoroscopy guidance(fluoroscopy images available in the radiology Department ) ( To target the facet joint between Bilateral L4-5 , and L5-S1 )# 2nd ANESTHESIA:, moderate sedation with intravenous Versed 2 mg and Fentanyl 100 mcg. EBL: Minimal COMPLICATION: None PROCEDURE INDICATION: Chronic low back pain secondary to Facet arthropathy unresponsive to conservative treatment. PROCEDURE DESCRIPTION: the patient was seen and identified in the preop holding area , risks and benefits and possible complications of the procedure and alternative were discussed with the patient, and the patient agreed to proceed with the procedure and signed the consent and vital signs monitored during the procedure and fluoroscopy was used to maximize the benefit and accuracy of the needle placement, and sedation was given to decrease patient anxiety, patient was taken to the procedure room and placed in prone position vital signs monitored in the back prepped with chlorhexidine X3 then under strict sterile technique using a right oblique fluoroscopy ,the junction of the transverse process and the superior articulating process of the right L3 , L4 , and L5 vertebra which corresponding to the fluoroscopy image of the eye of the Janusz dog on the block side for the medial branches and subsequently , after local infiltration of skin and subcu tissuies with Ropivacaine 0.5 % , one mL at each level ,then 22-gauge Quincke-type needles , 3 needle was used , each one of them placed at the junction of the base of the transverse process and the superior articular process at the appropriate level, and the needle was advanced until the periosteum contacted, needle placement confirmed with AP oblique and lateral view and after appropriate needle placement confirmed, and after negative aspiration for heme and CSF and there was no paresthesia 1-1/2 mL of Ropivacaine 0.5% mixed with 20 mg Depo-Medrol , then half mL injected at each level after negative aspiration the needle subsequently removed and the same procedure repeated for the left side at left side at L3 , L4 and L5 levels. At the end of the procedure and the needles removed and a bandage applied after the skin was cleaned the cleaning solution patient taken to recovery room in stable condition and monitors in the recovery room for 20-30 minutes and discharged home in stable condition after discharge criteria met and patient will follow up with the pain clinic in 2-4 weeks
[2022-04-27] MEDS ORDERED: IV FLUID CONTINUATION 1,000 ML IV ONE (07:39)
--- NOTE | 2022-04-27 07:56 | FL ---
Fluoroscopy INDICATION: Pain FINDINGS: Fluoroscopy time: 9 seconds. Images obtained: 4. IMPRESSIONS: 1. Documentation of fluoroscopy.
[2022-04-27 07:58] VITALS: BP 119/76; PULSE 63
== END 2022-04-27 08:09 | disposition home or self-care (01) ==
LOC: ORPAIN 06:26
PROVIDERS: ATTEND Specialist
DX: M47.816 Spondylosis without myelopathy or radiculopathy, lumbar region (principal); M51.36 Other intervertebral disc degeneration, lumbar region
CPT/HCPCS: 64493; 64494; J2250; J1030; J3010; J2795; 99152

== ENCOUNTER → 2022-05-04 | Outpatient (CLI) | payer OTHER ==
[2022-05-04 10:02] VITALS: BP 148/92; PULSE 83; RESP 18; TEMP 98.6
--- NOTE | 2022-05-04 10:18 | P.PAINPG ---
Objective - Vital Signs Vital signs: Vital Signs Temp 98.6 F 05/04/22 09:57 Pulse 83 05/04/22 09:57 Resp 18 05/04/22 09:57 BP 148/92 05/04/22 09:57 Pulse Ox 98 05/04/22 09:57 FiO2 Intake & Output 05/03/22 05/04/22 05/04/22 18:59 06:59 18:59 Weight 85.729 kg PQRS Measure Charge Sheet Mode of Arrival: Ambulatory Comment: A 56 yr old male with a history of severe and chronic low back pain secondary to lumbar degenerative disc diseases and lumbar spondylosis with facet arthropathy presents today for evaluation of BL L4-L5, L5-S1 #2. He received 90% relief x 2 days. Pain level is 4/10 in intensity, but escalates as high as 10/10 in intensity with lifting. Admits the pain shoots towards the RLE. Pain is alleviated with medications, injections, heat, physical therapy in the past, chiropractic treatments which were ineffective in treating pain, daily home stretching regimen, massage therapy which provided no relief, repositioning and rest. Patient also described left shoulder pain x 3 yrs, dull, achy in the generalized shoulder joint with accompanying weakness. Patient states he cannot lift his L UE above his head as it is limited due to pain. He states he also hears a crunching sound with movement. Interventional pain procedures completed include BL MBB L3-L5. Patient is currently on Tylenol OTC Patient denies any side effects of the medication(s), denies excessive drowsiness or sleepiness, denies suicidal ideation and reports that the current pain medication is helping to control the pain and improve activities of daily living. Patient denies any motor or sensory deficits. Patient denies any fever or night sweats, denies any change in the bowel movements or urination. Physical Examination: -Constitutional: Cooperative. Not in acute distress . -HEENT: Neck is supple. No lymphadenopathy. No thyromegaly. Normal thyroid size. Eyes: No ptosis , no icterus, no photophobia. ENT: No auditory deficits. Normal oropharynx. No Thrush. - Respiratory: Chest clear to auscultations bilaterally. No wheezing. No rhonchi. - Cardiovascular: Regular rate and rhythm. S1 / S2 , no S3 , no S4. +L shoulder crepitus - Gastrointestinal: Abdomen soft no tenderness. Bowel sounds positive in all four quadrants. No organomegaly. - Genitourinary: Deferred. - Neurologic: Cranial nerve II to XII intact. No focal neurological deficits. - Psychatric: Alert & oriented x 3. Matching mood & appropriate affect. Judgment and insight intact. - Lymphatic: No Lymphadenopathy. - Musculoskeletal: Cervical spine: Muscle bulk/ tone/ strength in the bilateral upper extremities normal Vertebral body tenderness to palpation over Facet loading test positive Thoracic spine Muscle bulk / tone/ strength in the bilateral paraspinal muscles normal Vertebral body tender to palpation over Facet loading test positive Lumbar spine: Motor bulk/ tone/ strength lower extremities , thigh and legs : 5/5 Deep tendon reflexes : Normal Knee Jerk. Normal Ankle Jerk . Vertebral body tenderness to palpation over Lumbar Facet Loading Test positive over BL L4-L5, L5-S1 with jump reflex Straight Leg Raise: positive at 30 degrees right side/ left side Gaenslen's Test positive Sacral spine : Severe tenderness over the Sacroiliac joint: right side / left side Range of motion: Flexion of the lumbar spine <60 degrees Range of motion: Extension of the lumbar spine <20 degrees Gaenslen's Test positive Jose's Test positive Radha test: positive right side / left side Thigh Thrust Test Sacral Thrust Test Assessment and plan: Chronic low back pain secondary to lumbar degenerative disc disease , lumbar spondylosis with facet arthropathy without myelopathy Recommendation of BL RFA L4-L5, L5-S1. Patient showed sufficient pain relief, though short-term, with the prior MBBs. Risks, benefits of procedure discussed and pt verbalized understanding. Denies anticoagulant use or medical history of diabetes. X ray 2 view of L shoulder re : M19.019 All patient questions answered MAPS reviewed and it was appropriate. I have spent 31 minutes on patient care today. Dr Medina was available by phone for the evaluation of this patient. The time was used to review the medical records including relevant urine studies and Prescription history (MAPs), review of the available imaging, evaluation and examination of the patient, coordination of care with the medical staff and if applicable referring physicians, as well as creation of the medical record - Pain Location Lower Back Non-Pharmacological Interventions: Chiropractic Treatment, Heat, Home Exercise, Inactivity, Massage, Physical Therapy, Position/Reposition, Stretching Pharmacological Interventions: Block, PRN Medication PQRS Narrative: Smoking Status Former smoker Blood Pressure 148/92 Pain Intensity [Lower Back] 4 Scale Used Numeric (1 - 10) Hx Alcohol Use (MH) No Home Medications: Ambulatory Orders LORazepam [Ativan] 2 mg PO BID PRN 12/29/15 Valsartan [Diovan] 160 mg PO DAILY 12/29/15 Atorvastatin [Lipitor] 40 mg PO HS 09/19/17 Sertraline [Zoloft] 50 mg PO DAILY 09/19/17 Controlled Substance Measures - Controlled Substance Measures Is patient prescribed a controlled substance at discharge?: No
== END ==
LOC: PNWHC3 09:43
PROVIDERS: ATTEND Specialist
DX: M47.816 Spondylosis without myelopathy or radiculopathy, lumbar region (principal); M51.36 Other intervertebral disc degeneration, lumbar region; G89.29 Other chronic pain; Z87.891 Personal history of nicotine dependence
CPT/HCPCS: 99211

== ENCOUNTER → 2022-05-04 | Outpatient (CLI) | payer OTHER ==
--- NOTE | 2022-05-04 14:32 | XR ---
EXAMINATION TYPE: XR shoulder limited LT DATE OF EXAM: 05/04/2022 COMPARISON: NONE HISTORY: 56-year-old male M19.09, osteoarthritis, left shoulder pain for 6 months. TECHNIQUE: 2 views FINDINGS: Mild marginal spurring at the AC joint. Subacromial space is preserved. No tendinous or bursal calcif ications. No acute fracture, subluxation, or dislocation. IMPRESSION: No acute osseous abnormality seen.
== END | disposition home or self-care (01) ==
LOC: RADXRMAIN 10:29
PROVIDERS: ATTEND Physician Assistant Medical
DX: M19.012 Primary osteoarthritis, left shoulder (principal)

== ENCOUNTER 2022-05-26 07:49 | Day surgery (SDC) | payer OTHER ==
[2022-05-24 10:38] VITALS: BMI 24.0
[2022-05-26 08:16] VITALS: TEMP 97
--- NOTE | 2022-05-26 08:56 | P.PCN ---
Date of Procedure: 05/26/22 Procedure(s) Performed: Lumbar radiofrequency ablation at L4 5 L5-S1 Description of Procedure: PREOPERATIVE DIAGNOSIS: Lumbar Facet Arthropathy without myelopathy POSTOPERATIVE DIAGNOSIS: Same PROCEDURES: RIGHT/LEFT Radiofrequency thermocoagulation of L4-5, L5-S1 medial branches, with fluoroscopic guidance ANESTHESIA: IV sedation with versed and fentanyl and local infiltration with lidocaine 1% 10 ml Imaging: Fluoroscopy was used, images where saved to the medical record PROCEDURE INDICATION: The patient with low back pain secondary to lumbar facet arthropathy who had more than 50% relief of pain with previous diagnostic lumbar medial branch block with local anesthetic. PROCEDURE DESCRIPTION / TECHNIQUE: The patient was seen and identified in the preoperative area. Risks, benefits, complications, including but not limited to risk of infection, bleeding, allergic reactions to the medications and no complete pain relief, and alternatives were discussed with the patient, the patient agreed to proceed with the procedure and signed the consent. IV was started. Vital signs remained stable throughout the procedure. Patient was taken to the OR and time out was completed. The patient was placed in the prone position on the procedure table. The lumber area was prepped and draped in the usual sterile fashion. Vital signs were closely monitored during the procedure. IV sedation was used during the procedure to decrease patient anxiety. Using AP and then oblique fluoroscopy, the eye of the Janusz dog corresponding to the connection between the superior and transverse articular processes of L4, L5, and sacral Ala were identified, marked, and localized with 1% lidocaine. Subsequently, a 20 [id number] radiofrequency cannula with a 10-mm active tip was advanced guided by fluoroscopy to the junction of the pedicle and transverse process of each identified level. Each site then underwent sensory testing at 50 Hz and 0 to 1 volt and motor testing at 2.5 Hz and 0 to 3 volt with local stimulation, no radicular symptoms sensed by the patient and no obvious motor stimulation noted. Thereafter the tested sites underwent radiofrequency thermocoagulation at 80 degrees celsius for 90 seconds after injecting 1 ml of PF lidocaine 1%. Then after the thermocoagulation was done, 1 ml of the block solution containing ropivaciane 0.5% was injected at the lesioned sites after negative aspiration of CSF and blood and with no paresthesias. Cannulas were retracted. At the end of the procedure, the skin was cleansed and bandages were applied. COMPLICATIONS: No acute complications. DISPOSITION / PLANS: The patient was placed in a supine position and transferred to the recovery area in a stable condition for observation and was discharged from the recovery room after meeting discharge criteria. Home discharge instructions given to the patient by the staff. The patient was reexamined prior to discharge. Follow-up in the clinic in 4 weeks for reevaluation
[2022-05-26] MEDS ORDERED: LACTATED RINGERS 1,000 ML IV ONE (09:35)
[2022-05-26] MEDS ORDERED: IV FLUID CONTINUATION 1,000 ML IV ONE (09:35)
[2022-05-26] MEDS ORDERED: ROPIVACAINE 5MG/ML 20ML VIAL ONE (09:36)
--- NOTE | 2022-05-26 09:53 | FL ---
EXAMINATION TYPE: FL guided pain mgmt statistic DATE OF EXAM: 05/26/2022 CLINICAL HISTORY: Low back pain. TECHNIQUE: Fluoroscopy. COMPARISON: None. FINDINGS: Fluoroscopic guidance was provided during pain relief procedure performed by Dr. Benítez . A total of 14 seconds of fluoroscopic time was utilized during the procedure and 5 spot images are acquired. Images acquired shows needle localization at several levels in the lumbar spine. IMPRESSION: As Above.
[2022-05-26 11:03] VITALS: RESP 16
[2022-05-26 11:04] VITALS: BP 127/71; PULSE 61
== END 2022-05-26 10:40 | disposition home or self-care (01) ==
LOC: ORPAIN 07:49
PROVIDERS: ATTEND Hospitalist
DX: M47.816 Spondylosis without myelopathy or radiculopathy, lumbar region (principal); I10 Essential (primary) hypertension; E78.5 Hyperlipidemia, unspecified; G43.909 Migraine, unspecified, not intractable, without status migrainosus; Z87.891 Personal history of nicotine dependence; Z79.899 Other long term (current) drug therapy; Z80.1 Family history of malignant neoplasm of trachea, bronchus and lung; Z83.3 Family history of diabetes mellitus; Z82.49 Family history of ischemic heart disease and other diseases of the circulatory system
CPT/HCPCS: 64635; 64636 ×2; J2001

== ENCOUNTER → 2022-06-19 | Outpatient (CLI) | payer OTHER ==
--- NOTE | 2022-06-19 15:08 | P.PAINPG ---
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 Patient states he received 75% pain relief s/p or seizure. Pain level is currently at 10/10 in intensity, constant, sharp in the anterior portion of his L shoulder without radiation of pain. Pain is provoked by lifting. Pain is alleviated with OTC medications, topicals, injections in the past, PT in the past, repositioning and rest. We will review his L shoulder x- ray results from 05/04/22. Interventional pain procedures completed include BL RFA L3-L5 Patient is currently on OTC meds Patient denies any side effects of the medication(s), denies excessive drowsiness or sleepiness, denies suicidal ideation and reports that the current pain medication is helping to control the pain and improve activities of daily living. Patient denies any motor or sensory deficits. Patient denies any fever or night sweats, denies any change in the bowel movements or urination. Physical Examination: -Constitutional: Cooperative. Not in acute distress . - Neurologic: Cranial nerve II to XII intact. No focal neurological deficits. - Psychatric: Alert & oriented x 3. Matching mood & appropriate affect. Judgment and insight intact. - Musculoskeletal: Cervical spine: Muscle bulk/ tone/ strength in the bilateral upper extremities normal Vertebral body tenderness to palpation over Spurling test positive Distraction test positive Facet loading test positive Thoracic spine Muscle bulk / tone/ strength in the bilateral paraspinal muscles normal Vertebral body tender to palpation over Facet loading test positive Lumbar spine: Motor bulk/ tone/ strength lower extremities , thigh and legs : 5/5 Deep tendon reflexes : Normal Knee Jerk. Normal Ankle Jerk . Vertebral body tenderness to palpation over Lumbar Facet Loading Test positive Straight Leg Raise: positive at 30 degrees right side/ left side Gaenslen's Test positive Sacral spine : Severe tenderness over the Sacroiliac joint: right side / left side Range of motion: Flexion of the lumbar spine <60 degrees Range of motion: Extension of the lumbar spine <20 degrees Gaenslen's Test positive Jose's Test positive Radha test: positive right side / left side Thigh Thrust Test Sacral Thrust Test Assessment and plan: Chronic low back pain secondary to lumbar degenerative disc disease , lumbar spondylosis with facet arthropathy without myelopathy, M19.019 Recommendation of L shoulder MRI without contrast re: M19.019 All patient questions answered MAPS reviewed and it was appropriate. Prescription for TENS unit, to use 15 min Q48 hrs prn spasms/ pain Re: M51.36 I have spent less than 30 minutes on patient care today. Dr Medina was available by phone for the evaluation of this patient. The time was used to review the medical records including relevant urine studies and Prescription history (MAPs), review of the available imaging, evaluation and examination of the patient, coordination of care with the medical staff and if applicable referring physicians, as well as creation of the medical record PQRS Narrative: Smoking Status Former smoker Hx Alcohol Use (MH) No Home Medications: Ambulatory Orders LORazepam [Ativan] 2 mg PO BID PRN 12/29/15 Valsartan [Diovan] 160 mg PO DAILY 12/29/15 Atorvastatin [Lipitor] 40 mg PO HS 09/19/17 Sertraline [Zoloft] 50 mg PO DAILY 09/19/17 Controlled Substance Measures - Controlled Substance Measures Is patient prescribed a controlled substance at discharge?: No
[2022-06-19 15:13] VITALS: BP 122/82; PULSE 96; RESP 18; TEMP 98.2
== END ==
LOC: PNWHC3 11:56
PROVIDERS: ATTEND Specialist
DX: M54.50 Low back pain, unspecified (principal); M51.36 Other intervertebral disc degeneration, lumbar region; M47.816 Spondylosis without myelopathy or radiculopathy, lumbar region; G89.29 Other chronic pain; M19.019 Primary osteoarthritis, unspecified shoulder; Z87.891 Personal history of nicotine dependence
CPT/HCPCS: 99211

== ENCOUNTER → 2022-06-29 | Outpatient (CLI) | payer OTHER ==
--- NOTE | 2022-06-30 04:27 | MR ---
EXAMINATION TYPE: MR shoulder LT wo con DATE OF EXAM: 06/29/2022 COMPARISON: None HISTORY: Left shoulder pain, limited range of motion for 3 years Multiplanar multiecho imaging of the left shoulder with no contrast. Subscapularis tendon is intact. Biceps tendon is intact. The glenoid uzma appear normal. The AC joint is intact. Supraspinatus tendon appears normal. No retraction. The infraspinatus tendon is intact. Humeral head is intact. No fracture. The scapula appears intact. IMPRESSION: Negative MR scan of the left shoulder.
== END | disposition home or self-care (01) ==
LOC: RADMRIMAIN 16:43
PROVIDERS: ATTEND Physician Assistant Medical
DX: M25.512 Pain in left shoulder (principal)

== ENCOUNTER → 2022-07-17 | Outpatient (CLI) | payer OTHER ==
[2022-07-17 11:23] VITALS: BP 150/92; PULSE 86; RESP 18; TEMP 97.9
--- NOTE | 2022-07-17 12:37 | P.PAINPG ---
PQRS Measure Charge Sheet Comment: A 56 yr old male with a history of severe and chronic L shoulder pain secondary to arthropathy presents today for L Shoulder MRI, reviewed w pt. Pain level is currently at 2/10 in intensity, constant, localized in sharp in character w shooting towards the back of the L elbow. Pain is provoked by movement, overhead reaching and lifting to 10/10 in intensity. Pain is alleviated with medications, topicals, inactivity, massage and rest. Interventional pain procedures completed include BL RFA L3-L5 Patient is currently on Tylenol, topicals Patient denies any side effects of the medication(s), denies excessive drowsiness or sleepiness, denies suicidal ideation and reports that the current pain medication is helping to control the pain and improve activities of daily living. Patient denies any motor or sensory deficits. Patient denies any fever or night sweats, denies any change in the bowel movements or urination. Physical Examination: -Constitutional: Cooperative. Not in acute distress . - Neurologic: Cranial nerve II to XII intact. No focal neurological deficits. - Psychatric: Alert & oriented x 3. Matching mood & appropriate affect. Judgment and insight intact. - Musculoskeletal: Cervical spine: +L posterior Humeral Head TTP Muscle bulk/ tone/ strength in the bilateral upper extremities normal Vertebral body tenderness to palpation over Spurling test positive Distraction test positive Facet loading test positive Thoracic spine Muscle bulk / tone/ strength in the bilateral paraspinal muscles normal Vertebral body tender to palpation over Facet loading test positive Lumbar spine: Motor bulk/ tone/ strength lower extremities , thigh and legs : 5/5 Deep tendon reflexes : Normal Knee Jerk. Normal Ankle Jerk . Vertebral body tenderness to palpation over Lumbar Facet Loading Test positive Straight Leg Raise: positive at 30 degrees right side/ left side Gaenslen's Test positive Sacral spine : Severe tenderness over the Sacroiliac joint: right side / left side Range of motion: Flexion of the lumbar spine <60 degrees Range of motion: Extension of the lumbar spine <20 degrees Gaenslen's Test positive Jose's Test positive Radha test: positive right side / left side Thigh Thrust Test Sacral Thrust Test Imaging: MRI without contrast of the L shoulder from 06/29/22 reviewed Assessment and plan: Chronic L Shoulder pain secondary to arthropathy without myelopathy Recommendation of L Suprascapular Nerve Block. May need a series of injections, up to 2 within a 4 mo period, for optimal pain relief. Risks, benefits of procedure discussed and pt verbalized understanding. Denies anticoagulant use or medical history of diabetes. All patient questions answered MAPS reviewed and it was appropriate. I have spent less than 30 minutes on patient care today. Dr Medina was available by phone for the evaluation of this patient. The time was used to review the medical records including relevant urine studies and Prescription history (MAPs), review of the available imaging, evaluation and examination of the patient, coordination of care with the medical staff and if applicable referring physicians, as well as creation of the medical record PQRS Narrative: Smoking Status Former smoker Hx Alcohol Use (MH) No Home Medications: Ambulatory Orders LORazepam [Ativan] 2 mg PO BID PRN 12/29/15 Valsartan [Diovan] 160 mg PO DAILY 12/29/15 Atorvastatin [Lipitor] 40 mg PO HS 09/19/17 Sertraline [Zoloft] 50 mg PO DAILY 09/19/17 Controlled Substance Measures - Controlled Substance Measures Is patient prescribed a controlled substance at discharge?: No
== END ==
LOC: PNWHC3 09:53
PROVIDERS: ATTEND Specialist
DX: G89.29 Other chronic pain (principal); M19.012 Primary osteoarthritis, left shoulder; Z87.891 Personal history of nicotine dependence
CPT/HCPCS: 99211

== ENCOUNTER 2022-08-17 11:04 | Day surgery (SDC) | payer OTHER ==
[~2022-08-17 11:04] MED LIST changes: +LIDOCAINE 1% (10MG/ML) FOR IV START INTRADERMA PRN
[2022-08-17 11:18] VITALS: TEMP 97.4
[2022-08-17] MEDS ORDERED: LACTATED RINGERS 1,000 ML IV ONE (11:25)
[2022-08-17] MEDS ORDERED: MIDAZOLAM 2 MG/2 ML VIAL ONE (11:32)
[2022-08-17] MEDS ORDERED: fentaNYL (PF) 50 MCG/ML 2 ML AMP ONE (11:32)
[2022-08-17] MEDS ORDERED: ROPIVACAINE 5 MG/ML 20 ML AMPULE ONE (11:32)
[2022-08-17] MEDS ORDERED: methylPREDNISolone ACETATE 80 MG/ML 1 ML VIAL ONE (11:32)
--- NOTE | 2022-08-17 11:58 | P.PCN ---
Date of Procedure: 08/17/22 Procedure(s) Performed: Procedure= left suprascapular nerve block under ultrasound guidance Preoperative diagnosis= 1-chronic left shoulder pain. 2-left shoulder arthralgia Postoperative diagnosis=Same as preop Diagnosis . Complication = none Condition= stable Anesthesia= moderate sedation with intravenous Versed 2 mg , and fentanyl 100 micrograms . Sedation start time: 1137 Sedation end time : 1151 Indication for the procedure= patient complaining of left shoulder pain , and he is here today to have suprascapular nerve block with ultrasound guidance Description of the procedure= procedure risk and benefits discussed with the patient, including but not limited, risk of infection and bleeding, and ALLERGIC reaction to the medication and not complete pain relief and patient agreed with the preceding patient taken to the operating room, placed in sitting position or standard monitors applied to the patient then after induction of anesthesia back prepped with chlorhexidine 3 times , Then under strict sterile technique, the left shoulder prepped with chlorhexidine 3 then local infiltration of the skin and subcu interstitial with ropivacaine 0.5% 2 mL, then 21-gauge pujunk needle advanced slowly under ultrasound guidance, and placed in the suprascapular notch, and the location of the left suprascapular nerve, then after needle placement confirmed, with ultrasound then after negative aspiration ropivacaine 0.5% 8 mL mixed with 80 mg of Depo-Medrol injected at the location of the left suprascapular nerve,, patient tolerated the procedure well without any complications and he will follow up in the pain clinic in a few weeks for reevaluation
[2022-08-17] MEDS ORDERED: IV FLUID CONTINUATION 1,000 ML IV ONE (12:04)
[2022-08-17 12:07] VITALS: RESP 16
[2022-08-17 12:25] VITALS: BP 117/75; PULSE 65
== END 2022-08-17 12:37 | disposition home or self-care (01) ==
LOC: ORPAIN 11:04
PROVIDERS: ATTEND Specialist
DX: G89.29 Other chronic pain (principal); M25.512 Pain in left shoulder
CPT/HCPCS: 64418; 76942; 99152; J2250; J1040; J3010; J2795

== ENCOUNTER 2022-11-24 08:48 | Emergency (ER) | payer OTHER ==
[2022-11-24 08:52] VITALS: BP 148/85; PULSE 91; RESP 20; TEMP 97.9
--- NOTE | 2022-11-24 09:41 | ED ---
Recheck HPI - General Chief Complaint: Recheck/Abnormal Lab/Rx Stated Complaint: rectal bleed Time Seen by Provider: 11/24/22 09:20 Source: patient, RN notes reviewed Mode of arrival: ambulatory Limitations: no limitations - History of Present Illness Initial Comments: 57-year-old male presents emergency Department with chief complaint of bleeding hemorrhoid. Patient states that he said for a while he states he actually had a colonoscopy a few months ago and was told by Dr. Larson there was not large enough to take care of. Patient states that it started bleeding last few days has been using witch alfredo he was using Preparation H but states it did not help.. He states there is more bleeding today but has subsided. States there is moderate discomfort. - Related Data Home Medications Medication Instructions Recorded Confirmed LORazepam [Ativan] 2 mg PO BID PRN 12/29/15 08/15/22 Valsartan [Diovan] 160 mg PO DAILY 12/29/15 08/15/22 Atorvastatin [Lipitor] 40 mg PO BID 09/19/17 08/15/22 Sertraline [Zoloft] 50 mg PO DAILY 09/19/17 08/15/22 Previous Rx's Medication Instructions Recorded Hydrocortisone [Anusol-Hc] 1 applic RECTAL BID #30 gm 11/24/22 Lidocaine 5% Oint [Xylocaine 5% 1 applic TOPICAL QID #30 gm 11/24/22 Oint] witch Alfredo [Tucks Medicated Pads] 1 pad TOPICAL QID #100 pad 11/24/22 Allergies Allergy/AdvReac Type Severity Reaction Status Date / Time No Known Allergies Allergy Verified 08/15/22 15:28 Review of Systems ROS Statement: Those systems with pertinent positive or pertinent negative responses have been documented in the HPI. ROS Other: All systems not noted in ROS Statement are negative. Past Medical History Past Medical History: Hyperlipidemia, Hypertension, Myocardial Infarction ([place]) Additional Past Medical History / Comment(s): MIGRAINES, STRESS TEST X2 WNL, SINUS PROBLEMS, UTI, SCOLIOSIS, CHRONIC BACK PAIN. Last Myocardial Infarction Date:: History of Any Multi-Drug Resistant Organisms: None Reported Past Surgical History: Heart Catheterization With Stent, Orthopedic Surgery Additional Past Surgical History / Comment(s): RT 5TH TOE SURGERY, 3 STENTS, CERVICAL FUSION. Past Anesthesia/Blood Transfusion Reactions: No Reported Reaction Date of Last Stent Placement:: 2013 Past Psychological History: Anxiety Smoking Status: Former smoker Past Alcohol Use History: None Reported Past Drug Use History: Marijuana - Past Family History Father Family Medical History: Cancer Additional Family Medical History / Comment(s): LUNG CANCER. Mother Family Medical History: Coronary Artery Disease (CAD), Diabetes Mellitus Additional Family Medical History / Comment(s): STENTS. General Exam Limitations: no limitations General appearance: alert, in no apparent distress Head exam: Present: atraumatic, normocephalic, normal inspection Respiratory exam: Present: normal lung sounds bilaterally. Absent: respiratory distress, wheezes, rales, rhonchi, stridor Cardiovascular Exam: Present: regular rate, normal rhythm, normal heart sounds. Absent: systolic murmur, diastolic murmur, rubs, gallop, clicks GI/Abdominal exam: Present: soft, normal bowel sounds. Absent: distended, tenderness, guarding, rebound, rigid Rectal exam: Present: hemorrhoids (Small hemorrhoid there is no thrombosed area, no active bleeding.). Absent: normal inspection Course Vital Signs 11/24/22 08:49 Temperature 97.9 F Pulse Rate 91 Respiratory 20 Rate Blood Pressure 148/85 O2 Sat by Pulse 96 Oximetry Medical Decision Making - Medical Decision Making Was pt. sent in by a medical professional or institution ([facility], [employer], urgent care, hospital, or fpc...) When possible be specific @ -No Did you speak to anyone other than the patient for history (EMS, parent, family, police, friend...)? What history was obtained from this source @ -No Did you review nursing and triage notes (agree or disagree)? Why? @ -I reviewed and agree with nursing and triage notes Were old charts reviewed (outside hosp., previous admission, EMS record, old EKG, old radiological studies, urgent care reports/EKG's, fpc records)? Report findings @ -No old charts were reviewed Differential Diagnosis (chest pain, altered mental status, abdominal pain women, abdominal pain men, vaginal bleeding, weakness, fever, dyspnea, syncope, headache, dizziness, GI bleed, back pain, seizure, CVA, palpatations, mental health)? @ -Thrombosed hemorrhoid, external hemorrhoid internal hemorrhoid, fissure, perianal abscess EKG interpreted by me (3pts min.). @ -None X-rays interpreted by me (1pt min.). @ -None done CT interpreted by me (1pt min.). @ -None done U/S interpreted by me (1pt. min.). @ -None done What testing was considered but not performed or refused? (CT, X-rays, U/S, labs)? Why? @ -None What meds were considered but not given or refused? Why? @ -None Did you discuss the management of the patient with other professionals (professionals i.e. , PA, [employer], lab, RT, psych nurse, psychotherapist social worker, tank inspector, teacher, control officer, manager case management)? Give summary @ -No Was smoking cessation discussed for >3mins.? @ -No Was critical care preformed (if so, how long)? @ -No Were there social determinants of health that impacted care today? How? (Homelessness, low income, unemployed, alcoholism, drug addiction, transportation, low edu. Level, literacy, decrease access to med. care, intermediate, rehab)? @ -No Was there de-escalation of care discussed even if they declined (Discuss DNR or withdrawal of care, Hospice)? DNR status @ -No What co-morbidities impacted this encounter? (DM, HTN, Smoking, COPD, CAD, Cancer, CVA, ARF, Chemo, Hep., AIDS, mental health diagnosis, sleep apnea, morbid obesity)? @ -None Was patient admitted / discharged? Hospital course, mention meds given and route, prescriptions, significant lab abnormalities, going to OR and other pertinent info. @ -Discharged 57 show present for bleeding from his hammer patient was discharged with Anusol, Tucks pads lidocaine jelly Undiagnosed new problem with uncertain prognosis? @ -No Drug Therapy requiring intensive monitoring for toxicity (Heparin, Nitro, Insulin, Cardizem)? @ -No Were any procedures done? @ -No Diagnosis/symptom? @ -Bleeding hemorrhoid Acute, or Chronic, or Acute on Chronic? @ -Acute Uncomplicated (without systemic symptoms) or Complicated (systemic symptoms)? @ -Uncomplicated Side effects of treatment? @ -No Exacerbation, Progression, or Severe Exacerbation? @ -No Poses a threat to life or bodily function? How? (Chest pain, [place], MD, pneumonia, PE, COPD, DKA, ARF, appy, cholecystitis, CVA, Diverticulitis, Homicidal, Suicidal, threat to staff... and all critical care pts) @ -No Disposition Clinical Impression: Hemorrhoid Disposition: HOME SELF-CARE Condition: Stable Instructions (If sedation given, give patient instructions): Hemorrhoids (ED) Additional Instructions: Please return to the Emergency Department if symptoms worsen or any other concerns. Prescriptions: Hydrocortisone [Anusol-Hc] 1 applic RECTAL BID #30 gm witch Alfredo [Tucks Medicated Pads] 1 pad TOPICAL QID #100 pad Lidocaine 5% Oint [Xylocaine 5% Oint] 1 applic TOPICAL QID #30 gm Is patient prescribed a controlled substance at d/c from ED?: No Referrals: None,Stated [Primary Care Provider] - 1-2 days Hair Peguero MD [STAFF PHYSICIAN] - 1-2 days Time of Disposition: 09:41
[2022-11-24] MEDS ORDERED: BENZOCAINE 20% HEMORRHOIDAL OINT 28GM RECTAL STA (09:42)
== END 2022-11-24 10:11 | disposition home or self-care (01) ==
LOC: EC 08:48
DX: K64.9 Unspecified hemorrhoids (principal); E78.5 Hyperlipidemia, unspecified; I10 Essential (primary) hypertension; I25.2 Old myocardial infarction; F41.9 Anxiety disorder, unspecified; F12.90 Cannabis use, unspecified, uncomplicated; Z87.891 Personal history of nicotine dependence; Z79.899 Other long term (current) drug therapy
CPT/HCPCS: 99283

== ENCOUNTER 2024-08-25 05:52 | Observation (INO) | payer MEDICARE ==
[2024-08-25 06:23] LABS: Glucose,Whole Blood 309 mg/dL (70-110)
--- NOTE | 2024-08-25 06:26 | ED ---
Headache HPI - General Chief Complaint: Headache Stated Complaint: Headache Time Seen by Provider: 08/25/24 06:04 Source: patient, family, RN notes reviewed Mode of arrival: wheelchair Limitations: no limitations - History of Present Illness Initial Comments: This is a 59-year-old male who presents to the emergency department for a headache and altered mental status. He has a history of migraines and was previously on a preventative medication that was discontinued a couple of months ago. Family is unsure what that medication was or why it was discontinued. States that this past week he has had 4 migraines, which is very unusual. Prior to this past week he had not had one for a couple of months. He went to bed with a headache last night, but woke family up in the middle of the night around 2 to 3 AM asking for help. At that time family noticed that he seemed very confused. He has never been altered or confused with migraines in the past, prompting them to bring him to the emergency department. Patient is currently only alert and oriented to himself. When asked where he was he states the bathroom. He is unaware of the year and unable to answer any other questions. Family states that his hands have also been cramping up on him and he has been vomiting all morning as well. Additionally, he has a hx of 3 cardiac stents. Most recent one was over 10 years ago. Not currently on a blood thinner. Currently denies any chest pain or shortness of breath, however ability to provide history is currently limited. MD Complaint: headache, "migraine" - Related Data Home Medications Medication Instructions Recorded Confirmed LORazepam [Ativan] 2 mg PO BID 12/29/15 08/25/24 DULoxetine HCL [Cymbalta] 30 mg PO DAILY 08/25/24 08/25/24 Linagliptin [Tradjenta] 5 mg PO DAILY 08/25/24 08/25/24 Pregabalin [Lyrica] 150 mg PO BID 08/25/24 08/25/24 Rosuvastatin [Crestor] 20 mg PO DAILY 08/25/24 08/25/24 Allergies Allergy/AdvReac Type Severity Reaction Status Date / Time No Known Allergies Allergy Verified 08/25/24 08:16 Review of Systems ROS Statement: Those systems with pertinent positive or pertinent negative responses have been documented in the HPI. ROS Other: All systems not noted in ROS Statement are negative. Past Medical History Past Medical History: Hyperlipidemia, Hypertension, Myocardial Infarction ([place]) Additional Past Medical History / Comment(s): MIGRAINES, STRESS TEST X2 WNL, SI NUS PROBLEMS, UTI, SCOLIOSIS, CHRONIC BACK PAIN. Last Myocardial Infarction Date:: History of Any Multi-Drug Resistant Organisms: None Reported Past Surgical History: Heart Catheterization With Stent, Orthopedic Surgery Additional Past Surgical History / Comment(s): RT 5TH TOE SURGERY, 3 STENTS, CERVICAL FUSION. Past Anesthesia/Blood Transfusion Reactions: No Reported Reaction Date of Last Stent Placement:: 2013 Past Psychological History: Anxiety Smoking Status: Former smoker Past Alcohol Use History: None Reported Past Drug Use History: Marijuana - Past Family History Father Family Medical History: Cancer Additional Family Medical History / Comment(s): LUNG CANCER. Mother Family Medical History: Coronary Artery Disease (CAD), Diabetes Mellitus Additional Family Medical History / Comment(s): STENTS. General Exam Limitations: no limitations General appearance: alert, in no apparent distress Head exam: Present: atraumatic, normocephalic, normal inspection Eye exam: Present: normal appearance, PERRL, EOMI. Absent: scleral icterus, conjunctival injection, periorbital swelling Respiratory exam: Present: normal lung sounds bilaterally. Absent: respiratory distress, wheezes, rales, rhonchi, stridor Cardiovascular Exam: Present: regular rate, normal rhythm, normal heart sounds. Absent: systolic murmur, diastolic murmur, rubs, gallop, clicks Expanded Patient oriented to: Present: person. Absent: place, time Speech: Present: fluid speech Cerebellar function: Romberg: Normal Upper motor neuron: Pronator Drift: Normal Motor strength exam: RUE: 5, LUE: 5, RLE: 5, LLE: 5 Psychiatric exam: Present: normal affect, normal mood Skin exam: Present: warm, dry, intact, normal color. Absent: rash Course Vital Signs 08/25/24 08/25/24 08/25/24 05:57 06:31 12:11 Temperature 99.0 F Pulse Rate 82 77 86 Respiratory 18 18 18 Rate Blood Pressure 176/88 163/94 113/79 O2 Sat by Pulse 95 97 98 Oximetry 08/25/24 08/25/24 08/25/24 15:39 16:00 17:00 Temperature Pulse Rate 85 82 80 Respiratory 18 18 18 Rate Blood Pressure 156/95 160/100 143/92 O2 Sat by Pulse 97 97 97 Oximetry 08/25/24 08/25/24 08/25/24 18:00 19:34 22:39 Temperature 98.3 F Pulse Rate 86 89 86 Respiratory 18 13 14 Rate Blood Pressure 164/98 143/99 136/91 O2 Sat by Pulse 97 97 95 Oximetry Medical Decision Making - Medical Decision Making This is a 59 year old male who presents to the emergency department for headaches and altered mental status. Was pt. sent in by a medical professional or institution? @ -No Did you speak to anyone other than the patient for history? @ -Family provided all of the history Did you review nursing and triage notes? @ -Yes, and I agree, it is accurate with regards to the patient's symptoms. Were old charts reviewed? @ -No Differential Diagnosis? @ -Differential Altered Mental Status: Hypoglycemia, DKA, hypercapnia, ETOH, overdose, CO poisoning, trauma, myxedema coma, HTN encephalopathy, infection, encephalitis, psychosis, intercranial hemorrhage, hepatic encephalopathy, meningitis, CVA, this is not meant to be an all-inclusive list EKG interpreted by me (3pts min.)? @ -EKG interpreted by me demonstrating the following: Sinus rhythm. Ventricular rate 80 bpm, IL interval 205 ms, QRS duration 109 ms, QTc 409 ms. X-rays interpreted by me (1pt min.)? @ -Chest x-ray obtained, my interpretation identifies no localized consolidations or infiltrates. CT interpreted by me (1pt min.)? @ -CT scan of the brain obtained. My interpretation identifies no evidence of an acute intracranial hemorrhage or mass effect. CTA of the head and neck obtained. My interpretation identifies no evidence of an aneurysm. U/S interpreted by me (1pt. min.)? @ -Not obtained What testing was considered but not performed? (CT, X-rays, U/S, labs)? Why? @ -None What meds were considered but not given? Why? @ -None Did you discuss the management of the patient with other professionals? @ -Yes, Luciana Mixon with [facility], who accepts the patient for admission. Did you reconcile home meds? @ -Yes Was smoking cessation discussed for >3mins.? @ -No Was critical care preformed (if so, how long)? @ -No Were there social determinants of health that impacted care today? How? (Homelessness, low income, unemployed, alcoholism, drug addiction, transportation, low edu. Level, literacy, decrease access to med. care, fdc, rehab)? @ -No Was there de-escalation of care discussed even if they declined? (Discuss DNR or withdrawal of care, Hospice)? @ -No What co-morbidities impacted this encounter? (DM, HTN, Smoking, COPD, CAD, Cancer, CVA, Hep., AIDS, mental health diagnosis, sleep apnea, morbid obesity)? @ -Migraines, CAD, HLD, HTN Was patient admitted / discharged? @ -Admitted. On arrival patient was only alert and oriented to himself. He had no unilateral weakness or deficits from what could be assessed, but was not willing to engage with instructions or commands when trying to perform the whole NIH scale. Lab work demonstrates leukocytosis with a white blood cell count of 13.8. Patient also has hyperglycemia with a glucose of 308. Lab work was otherwise unremarkable. There is no sign of DKA. Urinalysis negative for signs of infection. Chest x-ray reveals no acute process. CT scan of the brain and CTA of the head and neck obtained also revealing no acute findings. His symptoms were managed and he was able to express that he felt better, however he continued to remain altered and was only alert and oriented to himself. Patient subsequently admitted to medicine for altered mental status. Consult placed for neurology. Case discussed with ED attending Dr. Javier. Undiagnosed new problem with uncertain prognosis? @ -None Drug Therapy requiring intensive monitoring for toxicity (Heparin, Nitro, Insulin, Cardizem)? @ -None Were any procedures done? @ -None Diagnosis/symptom? @ -Altered mental status, migraine Acute, or Chronic, or Acute on Chronic? @ -Acute Uncomplicated (without systemic symptoms) or Complicated (systemic symptoms)? @ -Complicated Side effects of treatment? @ -None Exacerbation, Progression, or Severe Exacerbation] @ -Not applicable Poses a threat to life or bodily function? @ -Yes, the altered state is limiting his ability to function. - Lab Data Result diagrams: 08/25/24 06:26 08/25/24 06:26 Lab Results 08/25/24 08/25/24 08/25/24 Range/Units 06:22 06:26 06:26 WBC 13.8 H (3.8-10.6) k/uL RBC 5.28 (4.30-5.90) m/uL Hgb 16.6 (13.0-17.5) gm/dL Hct 46.5 (39.0-53.0) % MCV 88.0 (80.0-100.0) fL MCH 31.5 (25.0-35.0) pg MCHC 35.8 (31.0-37.0) g/dL RDW 13.1 (11.5-15.5) % Plt Count 312 (150-450) k/uL MPV 8.6 Neutrophils % 80 % Lymphocytes % 14 % Monocytes % 4 % Eosinophils % 1 % Basophils % 0 % Neutrophils # 11.1 H (1.3-7.7) k/uL Lymphocytes # 1.9 (1.0-4.8) k/uL Monocytes # 0.6 (0-1.0) k/uL Eosinophils # 0.1 (0-0.7) k/uL Basophils # 0.1 (0-0.2) k/uL PT 10.8 (10.0-12.5) sec INR 1.0 (<1.2) APTT 24.0 (22.0-30.0) sec Sodium (137-145) mmol/L Potassium (3.5-5.1) mmol/L Chloride (98-107) mmol/L Carbon Dioxide (22-30) mmol/L Anion Gap mmol/L BUN (9-20) mg/dL Creatinine (0.66-1.25) mg/dL Est GFR (CKD-EPI)AfAm (>60 ml/min/1.73 sqM) Est GFR (CKD-EPI)NonAf (>60 ml/min/1.73 sqM) Glucose (74-99) mg/dL POC Glucose (mg/dL) 309 H (70-110) mg/dL POC Glu Artificial Intelligence Specialist ID Ozzie Perez Plasma Lactic Acid Jatin (0.7-2.0) mmol/L Calcium (8.4-10.2) mg/dL Phosphorus (2.5-4.5) mg/dL Magnesium (1.6-2.3) mg/dL Total Bilirubin (0.2-1.3) mg/dL AST (17-59) U/L ALT (4-49) U/L Alkaline Phosphatase (38-126) U/L Troponin I (0.000-0.034) ng/mL Total Protein (6.3-8.2) g/dL Albumin (3.5-5.0) g/dL Urine Color Urine Appearance (Clear) Urine pH (5.0-8.0) Ur Specific [place] (1.001-1.035) Urine Protein (Negative) Urine Glucose (UA) (Negative) Urine Ketones (Negative) Urine Blood (Negative) Urine Nitrite (Negative) Urine Bilirubin (Negative) Urine Urobilinogen (<2.0) mg/dL Ur Leukocyte Esterase (Negative) Urine Opiates Screen (NotDetected) Ur Oxycodone Screen (NotDetected) Urine Methadone Screen (NotDetected) Ur Barbiturates Screen (NotDetected) U Tricyclic Antidepress (NotDetected) Ur Phencyclidine Scrn (NotDetected) Ur Amphetamines Screen (NotDetected) U Methamphetamines Scrn (NotDetected) U Benzodiazepines Scrn (NotDetected) Urine Cocaine Screen (NotDetected) U Marijuana (THC) Screen (NotDetected) Serum Alcohol mg/dL 08/25/24 08/25/24 08/25/24 Range/Units 06:26 06:26 07:51 WBC (3.8-10.6) k/uL RBC (4.30-5.90) m/uL Hgb (13.0-17.5) gm/dL Hct (39.0-53.0) % MCV (80.0-100.0) fL MCH (25.0-35.0) pg MCHC (31.0-37.0) g/dL RDW (11.5-15.5) % Plt Count (150-450) k/uL MPV Neutrophils % % Lymphocytes % % Monocytes % % Eosinophils % % Basophils % % Neutrophils # (1.3-7.7) k/uL Lymphocytes # (1.0-4.8) k/uL Monocytes # (0-1.0) k/uL Eosinophils # (0-0.7) k/uL Basophils # (0-0.2) k/uL PT (10.0-12.5) sec INR (<1.2) APTT (22.0-30.0) sec Sodium 130 L (137-145) mmol/L Potassium 3.8 (3.5-5.1) mmol/L Chloride 97 L (98-107) mmol/L Carbon Dioxide 23 (22-30) mmol/L Anion Gap 10 mmol/L BUN 8 L (9-20) mg/dL Creatinine 0.86 (0.66-1.25) mg/dL Est GFR (CKD-EPI)AfAm >90 (>60 ml/min/1.73 sqM) Est GFR (CKD-EPI)NonAf >90 (>60 ml/min/1.73 sqM) Glucose 308 H (74-99) mg/dL POC Glucose (mg/dL) (70-110) mg/dL POC Glu Artificial Intelligence Specialist ID Plasma Lactic Acid Jatin (0.7-2.0) mmol/L Calcium 9.1 (8.4-10.2) mg/dL Phosphorus 2.8 (2.5-4.5) mg/dL Magnesium 2.0 (1.6-2.3) mg/dL Total Bilirubin 1.0 (0.2-1.3) mg/dL AST 33 (17-59) U/L ALT 39 (4-49) U/L Alkaline Phosphatase 107 (38-126) U/L Troponin I <0.012 (0.000-0.034) ng/mL Total Protein 7.0 (6.3-8.2) g/dL Albumin 4.2 (3.5-5.0) g/dL Urine Color Colorless Urine Appearance Clear (Clear) Urine pH 7.5 (5.0-8.0) Ur Specific [place] 1.045 H (1.001-1.035) Urine Protein Negative (Negative) Urine Glucose (UA) 4+ H (Negative) Urine Ketones Negative (Negative) Urine Blood Negative (Negative) Urine Nitrite Negative (Negative) Urine Bilirubin Negative (Negative) Urine Urobilinogen <2.0 (<2.0) mg/dL Ur Leukocyte Esterase Negative (Negative) Urine Opiates Screen Not Detected (NotDetected) Ur Oxycodone Screen Not Detected (NotDetected) Urine Methadone Screen Not Detected (NotDetected) Ur Barbiturates Screen Detected H (NotDetected) U Tricyclic Antidepress Not Detected (NotDetected) Ur Phencyclidine Scrn Not Detected (NotDetected) Ur Amphetamines Screen Not Detected (NotDetected) U Methamphetamines Scrn Not Detected (NotDetected) U Benzodiazepines Scrn Detected H (NotDetected) Urine Cocaine Screen Not Detected (NotDetected) U Marijuana (THC) Screen Detected H (NotDetected) Serum Alcohol <10 mg/dL 08/25/24 Range/Units 08:00 WBC (3.8-10.6) k/uL RBC (4.30-5.90) m/uL Hgb (13.0-17.5) gm/dL Hct (39.0-53.0) % MCV (80.0-100.0) fL MCH (25.0-35.0) pg MCHC (31.0-37.0) g/dL RDW (11.5-15.5) % Plt Count (150-450) k/uL MPV Neutrophils % % Lymphocytes % % Monocytes % % Eosinophils % % Basophils % % Neutrophils # (1.3-7.7) k/uL Lymphocytes # (1.0-4.8) k/uL Monocytes # (0-1.0) k/uL Eosinophils # (0-0.7) k/uL Basophils # (0-0.2) k/uL PT (10.0-12.5) sec INR (<1.2) APTT (22.0-30.0) sec Sodium (137-145) mmol/L Potassium (3.5-5.1) mmol/L Chloride (98-107) mmol/L Carbon Dioxide (22-30) mmol/L Anion Gap mmol/L BUN (9-20) mg/dL Creatinine (0.66-1.25) mg/dL Est GFR (CKD-EPI)AfAm (>60 ml/min/1.73 sqM) Est GFR (CKD-EPI)NonAf (>60 ml/min/1.73 sqM) Glucose (74-99) mg/dL POC Glucose (mg/dL) (70-110) mg/dL POC Glu Artificial Intelligence Specialist ID Plasma Lactic Acid Jatin 1.8 (0.7-2.0) mmol/L Calcium (8.4-10.2) mg/dL Phosphorus (2.5-4.5) mg/dL Magnesium (1.6-2.3) mg/dL Total Bilirubin (0.2-1.3) mg/dL AST (17-59) U/L ALT (4-49) U/L Alkaline Phosphatase (38-126) U/L Troponin I (0.000-0.034) ng/mL Total Protein (6.3-8.2) g/dL Albumin (3.5-5.0) g/dL Urine Color Urine Appearance (Clear) Urine pH (5.0-8.0) Ur Specific [place] (1.001-1.035) Urine Protein (Negative) Urine Glucose (UA) (Negative) Urine Ketones (Negative) Urine Blood (Negative) Urine Nitrite (Negative) Urine Bilirubin (Negative) Urine Urobilinogen (<2.0) mg/dL Ur Leukocyte Esterase (Negative) Urine Opiates Screen (NotDetected) Ur Oxycodone Screen (NotDetected) Urine Methadone Screen (NotDetected) Ur Barbiturates Screen (NotDetected) U Tricyclic Antidepress (NotDetected) Ur Phencyclidine Scrn (NotDetected) Ur Amphetamines Screen (NotDetected) U Methamphetamines Scrn (NotDetected) U Benzodiazepines Scrn (NotDetected) Urine Cocaine Screen (NotDetected) U Marijuana (THC) Screen (NotDetected) Serum Alcohol mg/dL - Radiology Data Radiology results: report reviewed, image reviewed Disposition Clinical Impression: Migraine, Altered mental status Disposition: ADMITTED IP TO THIS HOSP
[2024-08-25] MEDS: SODIUM CHLORIDE 0.9% 1,000 ML IV ONE (06:34)
[2024-08-25] MEDS: ONDANSETRON 4 MG/2 ML VIAL IVP STA (06:49)
[2024-08-25] MEDS: PROCHLORPERAZINE INJ 10 MG/2 ML VIAL IVP STA (06:50)
[2024-08-25] MEDS: ACETAMINOPHEN IV (For NPO) 1,000 MG in EMPTY BAG 1 BAG IVPB STA (06:54)
[2024-08-25 06:56] LABS: ALT 39 U/L (4-49); AST 33 U/L (17-59); African American GFR (CKD) >90 (>60 ml/min/1.73 sqM); Albumin 4.2 g/dL (3.5-5.0); Alcohol <10 mg/dL; Alkaline Phosphatase 107 U/L (38-126); Anion Gap 10 mmol/L; Blood Urea Nitrogen 8 mg/dL (9-20); Calcium 9.1 mg/dL (8.4-10.2); Carbon Dioxide 23 mmol/L (22-30); Chloride 97 mmol/L (98-107); Glucose 308 mg/dL (74-99); Non-African American GFR(CKD) >90 (>60 ml/min/1.73 sqM); Phosphorus 2.8 mg/dL (2.5-4.5); Potassium 3.8 mmol/L (3.5-5.1); Sodium 130 mmol/L (137-145)
[2024-08-25 06:58] LABS: Prothrombin Time 10.8 sec (10.0-12.5)
[2024-08-25 07:01] LABS: Basophils # (A) 0.1 k/uL (0-0.2); Basophils % (A) 0 %; Eosinophils # (A) 0.1 k/uL (0-0.7); Eosinophils % (A) 1 %; HCT 46.5 % (39.0-53.0); HGB 16.6 gm/dL (13.0-17.5); Lymphocytes # (A) 1.9 k/uL (1.0-4.8); Lymphocytes % (A) 14 %; MCH 31.5 pg (25.0-35.0); MCHC 35.8 g/dL (31.0-37.0); Mean Platelet Volume 8.6; Monocytes # (A) 0.6 k/uL (0-1.0); Monocytes % (A) 4 %; Neutrophils # (A) 11.1 k/uL (1.3-7.7); Neutrophils % (A) 80 %; Platelet Count 312 k/uL (150-450); RBC 5.28 m/uL (4.30-5.90); RDW 13.1 % (11.5-15.5); WBC 13.8 k/uL (3.8-10.6)
[2024-08-25 07:56] LABS: Appearance,Urine Clear (Clear); Bilirubin,Urine Negative (Negative); Blood,Urine Negative (Negative); Color,Urine Colorless; Glucose,Urine (UA) 4+ (Negative); Ketones,Urine Negative (Negative); Leukocyte Esterase,Urine Negative (Negative); Nitrite,Urine Negative (Negative); PH, Urine 7.5 (5.0-8.0); Protein,Urine Negative (Negative); Specific Gravity,Urine 1.045 (1.001-1.035); Urobilinogen,Urine <2.0 mg/dL (<2.0)
--- NOTE | 2024-08-25 08:00 | CT ---
EXAMINATION TYPE: CT brain wo con DATE OF EXAM: 08/25/2024 COMPARISON: None HISTORY: AMS, headache CT DLP: [address] of the brain was performed. The ventricles, basal cisterns and sulci overlying the cerebral convexities demonstrate mild enlargem ent. There is no evidence for intracranial hemorrhage or sulcal effacement. There is decreased attenuation about the periventricular white matter and deep white matter of both c erebral hemispheres, compatible with chronic small vessel ischemia. Differential diagnosis does inclu de demyelination. No mass effects are seen.No midline shift. Osseous calvarium is intact. If symptoms persist consider MRI. IMPRESSION: 1. Age related atrophic and chronic small vessel ischemic change without acute intracranial process s een at this time. [facility], , 08/25/2024 7:57 AM
--- NOTE | 2024-08-25 08:05 | CT ---
EXAMINATION TYPE: CT angio head neck DATE OF EXAM: 08/25/2024 COMPARISON: None HISTORY: AMS CT DLP: 1854 mGycm CONTRAST: Performed without and with IV Contrast, patient injected with 65 ml mL of Isovue 370. Combination Contrast CTA cervical carotids and [place] CTA cervical carotids with 3-D recons truction Contrast CTA of the cervical carotids was performed 3-D reconstruction imaging obtained at a separate workstation. Right carotid system: Mild plaque is seen of the right common carotid artery. There is mild plaque a lso noted at the carotid bulb and proximal ICA. No significant diameter reduction. ECA is patent. Right vertebral artery appears unremarkable. Left carotid system: Mild plaque is seen of the left common carotid artery. There is mild plaque als o noted at the carotid bulb and proximal ICA. No significant diameter reduction. ECA is patent. Lef t vertebral artery appears unremarkable. IMPRESSION: 1. No significant diameter reduction to account for the patient's symptoms. CTA [place] with 3-D reconstruction Contrast CTA of the [place] was performed 3-D reconstruction imaging obtained at a separate workstation. Vertebrobasilar system as well as intracranial portions of the internal carotid arteries and their ma tony tributaries are patent. I do not see evidence for sizable aneurysm or vascular malformation. Pl ease note MRI provides greater sensitivity and specificity. Visualized brain appears grossly unremar kable. IMPRESSION: 1. No significant abnormality. NASCET criteria was used in interpretation of this exam? [facility], , 08/25/2024 8:03 AM
[2024-08-25 08:07] LABS: Amphetamine Screen,Urine Not Detected (NotDetected); Barbiturate Screen,Urine Detected (NotDetected); Benzodiazepines Screen,Urine Detected (NotDetected); Cocaine Screen,Urine Not Detected (NotDetected); Methadone Screen, Urine Not Detected (NotDetected); Opiate Screen,Urine Not Detected (NotDetected); Oxycodone Screen, Urine Not Detected (NotDetected); Phencyclidine Screen,Urine Not Detected (NotDetected); Tricyclic Antidepressant,Urine Not Detected (NotDetected); Urn Cannabinoid Scrn Detected (NotDetected)
--- NOTE | 2024-08-25 08:12 | XR ---
EXAMINATION TYPE: XR chest 1V portable DATE OF EXAM: 08/25/2024 HISTORY: Shortness of breath. COMPARISON: 09/19/2017 TECHNIQUE: Single view of the chest is submitted. FINDINGS: Demonstrated are scattered senescent parenchymal change. There is no evidence for focal infiltrate. The heart is stable. Hilar and mediastinal structures are within normal limits. Degenerative changes are seen of the dorsal spine. IMPRESSION: 1. Chronic changes without evidence for acute pulmonary disease. [facility], , 08/25/2024 8:09 AM
[2024-08-25] MEDS ORDERED: ONDANSETRON 4 MG/2 ML VIAL IVP PRN (09:25)
[2024-08-25] MEDS ORDERED: ACETAMINOPHEN TAB 325 MG TAB PO PRN (09:25)
[2024-08-25] MEDS ORDERED: NALOXONE 0.4 MG/ML 1 ML VIAL IV PRN (09:25)
[2024-08-25] MEDS ORDERED: MORPHINE SULFATE 4 MG/ML SYRINGE IV PRN (09:25)
[2024-08-25] MEDS ORDERED: KETOROLAC 15 MG/ML 1 ML VIAL IVP PRN (09:25)
[2024-08-25] MEDS ORDERED: IBUPROFEN 400 MG TAB PO PRN (09:25)
[2024-08-25] MEDS ORDERED: HYDROcodone/APAP 5-325MG 1 EACH TAB PO PRN (09:25)
[2024-08-25 12:12] LABS: Glucose,Whole Blood 236 mg/dL (70-110)
[2024-08-25] MEDS ORDERED: HYDROmorphone 0.5 MG/0.5 ML SYRINGE IVP PRN (14:02)
--- NOTE | 2024-08-25 15:18 | P.CNNES ---
History of Present Illness Consult date: 08/25/24 Requesting physician: Rosa Larson Reason for Consult: fever, altered mental status, elevated wbc History of Present Illness: This is a 59-year-old gentleman who presented emergency department for headache. Patient seems to be a poor historian. Patient kept on saying that he has a migraine headache and it is in the middle of his forehead and he states it 5 out of 10 and it is not different than his usual headache. He stated it similar to his past headaches stated earlier. He feels as a sharp pain denies any ra diation. He states he has been having headache for the past couple days. No nausea no vomiting no focal weakness. Denies any head trauma. Per the emergency department it is reported the patient has a headache with confusion. Seems that the patient has history of migraine and the patient did confirm that he had history of migraine upon asking him and per the ED note his Medication was discontinued couple months ago. And it seems per the ED note the patient for the past week has had 4 migraines which seems unusual seems to the family noticed that the patient was confused. Seems the patient has been vomiting all morning. Patient denies any history of stroke. He does have underlying diabetes mellitus, chronic back pain. Seems the patient has coronary artery disease status post stent. Some of the workup during this hospital visit consisted of: Temperature of 99 Fahrenheit. Blood pressure 176/88 Blood cell is 13.8. 30. I reviewed the rest of the lab workup. Plasma lactic acid venous 1.8. UDS is positive for barbiturates, benzos and marijuana. CT Head is reported as age-related atrophy and chronic small vessel ischemic change without acute intracranial process seen at this time. Personally reviewed the CT and I agree there is no acute or subacute stroke. Does have an old stroke on the CT predominantly over the right basal ganglia lara radiata. CTA head and necK: No significant abnormality. Review of Systems Limited but positive and negative as per HPI. Past Medical History Past Medical History: Hyperlipidemia, Hypertension, Myocardial Infarction ([place]) Additional Past Medical History / Comment(s): MIGRAINES, STRESS TEST X2 WNL, SINUS PROBLEMS, UTI, SCOLIOSIS, CHRONIC BACK PAIN. Last Myocardial Infarction Date:: History of Any Multi-Drug Resistant Organisms: None Reported Past Surgical History: Heart Catheterization With Stent, Orthopedic Surgery Additional Past Surgical History / Comment(s): RT 5TH TOE SURGERY, 3 STENTS, CERVICAL FUSION. Past Anesthesia/Blood Transfusion Reactions: No Reported Reaction Date of Last Stent Placement:: 2013 Past Psychological History: Anxiety Smoking Status: Former smoker Past Alcohol Use History: None Reported Past Drug Use History: Marijuana - Past Family History Father Family Medical History: Cancer Additional Family Medical History / Comment(s): LUNG CANCER. Mother Family Medical History: Coronary Artery Disease (CAD), Diabetes Mellitus Additional Family Medical History / Comment(s): STENTS. Medications and Allergies Home Medications Medication Instructions Recorded Confirmed Type LORazepam [Ativan] 2 mg PO BID 12/29/15 08/25/24 History DULoxetine HCL [Cymbalta] 30 mg PO DAILY 08/25/24 08/25/24 History Linagliptin [Tradjenta] 5 mg PO DAILY 08/25/24 08/25/24 History Pregabalin [Lyrica] 150 mg PO BID 08/25/24 08/25/24 History Rosuvastatin [Crestor] 20 mg PO DAILY 08/25/24 08/25/24 History Allergies Allergy/AdvReac Type Severity Reaction Status Date / Time No Known Allergies Allergy Verified 08/25/24 08:16 Physical Examination - Vital Signs Vital Signs: Vital Signs Temp Pulse Resp BP Pulse Ox 08/25/24 12:11 86 18 113/79 98 08/25/24 06:31 77 18 163/94 97 08/25/24 05:57 99.0 F 82 18 176/88 95 Intake and Output 08/25/24 08/25/24 08/25/24 06:59 14:59 22:59 Other: Weight 87.543 kg General: Lying in bed and does not appear in acute distress. HENT: Supple neck. Neuro: Somewhat limited. Is awake alert oriented to self place. He stated the year is 2003 and January. He is able to identify objects such as pen glasses. He is able to follow commands. No aphasia. Pupils are round equal reactive to light. Visual riley are full to confrontation. Extraocular movements intact no nystagmus. No facial weakness. No dysarthria Motor patient is lifting all extremities above gravity equally. Normal tone and bulk Sensation is normal to touch Reflexes is 2 positive throughout. Plantars are mute bilaterally. Results - Laboratory Findings CBC and BMP: 08/25/24 06:26 08/25/24 06:26 Abnormal Lab Findings: Abnormal Labs 08/25/24 08/25/24 08/25/24 06:22 06:26 06:26 WBC 13.8 H Neutrophils # 11.1 H Sodium 130 L Chloride 97 L BUN 8 L Glucose 308 H POC Glucose (mg/dL) 309 H Ur Specific [place] Urine Glucose (UA) Ur Barbiturates Screen U Benzodiazepines Scrn U Marijuana (THC) Screen 08/25/24 08/25/24 07:51 12:10 WBC Neutrophils # Sodium Chloride BUN Glucose POC Glucose (mg/dL) 236 H Ur Specific [place] 1.045 H Urine Glucose (UA) 4+ H Ur Barbiturates Screen Detected H U Benzodiazepines Scrn Detected H U Marijuana (THC) Screen Detected H Assessment and Plan Assessment: This is a 59-year-old gentleman with history of migraine presents the emergency department because of headache as well as altered mental status. Seems that the patient was previously on preventative medication that was discontinued a cou ple months ago. He also been having vomiting episodes. Altered mental status with cephalgia. The ED note is mentioned that the patient has a fever but during this admission no fever is noted and patient has mild leukocytosis. Rule out underlying [employer] infection such as encephalitis History of migraine History of old stroke on CT of the head over the right. Underlying history of diabetes mellitus Chronic lower back pain History of coronary artery disease status post stent Plan: I ordered a routine EEG falls MRI of the brain with and without I consulted pain specialist for lumbar puncture for CSF study Ordered ESR, TSH, ammonia, vitamin B12 and folate, HSV1/2. Infection disease team is on board Will defer the rest of the medical management to primary and other specialist Thank you for the consultation. Time with Patient: Greater than 30
[2024-08-25] MEDS: PREGABALIN 75 MG CAP PO SCH (20:37)
[2024-08-25] MEDS: LORazepam 1 MG TAB PO SCH (20:38)
[2024-08-25] MEDS: HEPARIN SODIUM,PORCINE 5,000 UNIT/ML 1 ML VIAL SQ SCH (20:39)
--- NOTE | 2024-08-25 22:34 | HP ---
HISTORY AND PHYSICAL CHIEF COMPLAINT: Headache and change in mental status. HISTORY OF PRESENT ILLNESS: This is a 59-year-old gentleman with a past medical history of multiple medical problems including hypertension, hyperlipidemia, migraine, is complaining of headache and change in mental status. The patient apparently discontinued migraine medications. There is no history of any fever, rigors, or chills at this time. The patient is unable to give a coherent history at this time. Neurology workup is in progress. The initial CT scan and CT angio was negative. PAST MEDICAL HISTORY: Reviewed include hypertension, hyperlipidemia. Rest of the history and rest of the chart is also reviewed. HOME MEDICATIONS: Reviewed include Crestor. Dose and rest of medications noted. ALLERGIES: None. FAMILY HISTORY: History of lung cancer. SOCIAL HISTORY: Previous history of smoking, THC. REVIEW OF SYSTEMS: Could not be taken because of change in mental status. PHYSICAL EXAMINATION: VITAL SIGNS: Pulse is 86, blood pressure 113/79, respirations 18. HEENT: Conjunctivae normal. NECK: No JVD. CARDIOVASCULAR: S1, S2. RESPIRATIONS: Breath sounds diminished at the bases. A few scattered rhonchi. ABDOMEN: Soft. LEGS: No edema. NERVOUS SYSTEM: Mild diffuse weakness. No focal deficits. LABORATORY DATA: WBC 13.2. Rest of the labs are noted. ASSESSMENT: 1. Headache, change in mental status, for evaluation. 2. Elevated WBC. 3. Hyponatremia. 4. Anxiety. 5. Hypertension. 6. Hyperlipidemia. 7. History of coronary artery disease stent. RECOMMENDATIONS AND DISCUSSION: This is a 59-year-old gentleman presented with multiple complex medical issues, we will monitor the patient closely. Continue the current medications. The patient seems to have metabolic encephalopathy. The exact etiology is unknown. White count is also elevated. I would recommend blood cultures to rule out the possibility of infection. Also, recommend Neurology, Infectious Disease evaluation also. Guarded prognosis because of multiple complex medical issues. Further recommendations to follow. MMODL / IJN: [id number] /
[2024-08-25 23:35] LABS: Glucose,Whole Blood 243 mg/dL (70-110)
--- NOTE | 2024-08-26 03:58 | EEG ---
ELECTROENCEPHALOGRAM REPORT CLINICAL HISTORY: This is a 59-year-old gentleman with altered mental status. The video EEG is obtained to evaluate for seizure epileptiform activity. RELEVANT MEDICATION: 1. Cymbalta. 2. Ativan. 3. Lyrica. EEG TYPE: This is a routine 21 channel EEG with video using the 10/20 electrode placement system. DESCRIPTION: Wakefulness and drowsiness are obtained. During awake state, the background consists of [id number] voltage of 9 to 10 hertz activity and at times, the background is intermixed with theta delta activity. There is no physiological stage 2 sleep architecture. There is no focal slowing. There is mild diffuse myogenic artifact. Interictal and ictal, there is no clear discharges or seizure on the EEG. ACTIVATION PROCEDURE: Photic stimulation did not evoke a posterior driving response. There is no abnormality during the photic stimulation. Hyperventilation is not performed. CLINICAL INTERPRETATION: This is an abnormal routine EEG. The background slowing is suggestive of mild encephalopathy. There is no focal slowing, epileptiform discharge, or seizure on the EEG. Clinical correlation is recommended. CATHERINE / ANDREW: [id number] / [email or web address]
[2024-08-26 07:16] LABS: Glucose,Whole Blood 223 mg/dL (70-110)
--- NOTE | 2024-08-26 07:57 | P.CONS ---
History of Present Illness - Reason for Consult Consult date: 08/25/24 Encephalopathy Requesting physician: Jak Bales - Chief Complaint Headache x few days - History of Present Illness Patient is a 59-year-old male with a past medical history significant for hypertension hyperlipidemia [place] migraine headache patient presenting to the hospital for evaluation of headache and apparently some mental status changes as reported by the ER physician patient mention in the past 1 week he did have for migraine headache which is unusual for him he is currently describing the headache to be mostly diffuse and has been typical characteristic of his migraine headache however slight increase in intensity patient denies having any fever or any chills patient did have mild photophobia nausea but no vomiting denies having any chest pain shortness of breath or cough patient denies having abdominal pain or any diarrhea patient is aware that he is at the [facility] patient did have elevated white count 13.8 with a left shift creatinine has been 0.86 liver enzymes are normal urine has been negative urine drug screen was positive for barbiturates benzos and marijuana influenza RSV COVID testing was negative he did have a chest x-ray chronic changes without evidence for acute pulmonary disease CT of the brain age-related atrophic and chronic small vessel ischemic changes without acute intracranial process patient has been ad mitted to hospital infectious disease was consulted regarding encephalopathy Review of Systems Positive point and negatives has been mentioned in the HPI, complete review of systems was performed and all other systems are negative Past Medical History Past Medical History: Hyperlipidemia, Hypertension, Myocardial Infarction ([place]) Additional Past Medical History / Comment(s): MIGRAINES, STRESS TEST X2 WNL, SINUS PROBLEMS, UTI, SCOLIOSIS, CHRONIC BACK PAIN. Last Myocardial Infarction Date:: History of Any Multi-Drug Resistant Organisms: None Reported Past Surgical History: Heart Catheterization With Stent, Orthopedic Surgery Additional Past Surgical History / Comment(s): RT 5TH TOE SURGERY, 3 STENTS, CERVICAL FUSION. Past Anesthesia/Blood Transfusion Reactions: No Reported Reaction Date of Last Stent Placement:: 2013 Past Psychological History: Anxiety Smoking Status: Former smoker Past Alcohol Use History: None Reported Past Drug Use History: Marijuana - Past Family History Father Family Medical History: Cancer Additional Family Medical History / Comment(s): LUNG CANCER. Mother Family Medical History: Coronary Artery Disease (CAD), Diabetes Mellitus Additional Family Medical History / Comment(s): STENTS. Medications and Allergies Home Medications Medication Instructions Recorded Confirmed Type LORazepam [Ativan] 2 mg PO BID 12/29/15 08/25/24 History DULoxetine HCL [Cymbalta] 30 mg PO DAILY 08/25/24 08/25/24 History Linagliptin [Tradjenta] 5 mg PO DAILY 08/25/24 08/25/24 History Pregabalin [Lyrica] 150 mg PO BID 08/25/24 08/25/24 History Rosuvastatin [Crestor] 20 mg PO DAILY 08/25/24 08/25/24 History Allergies Allergy/AdvReac Type Severity Reaction Status Date / Time No Known Allergies Allergy Verified 08/25/24 08:16 Physical Exam Vitals: Vital Signs Temp Pulse Resp BP Pulse Ox 08/25/24 12:11 86 18 113/79 98 08/25/24 06:31 77 18 163/94 97 08/25/24 05:57 99.0 F 82 18 176/88 95 Intake and Output 08/24/24 08/25/24 08/25/24 22:59 06:59 14:59 Other: Weight 87.543 kg GENERAL DESCRIPTION: Middle-aged male lying in bed, no distress. No tachypnea or accessory muscle of respiration use. HEENT: Shows Pallor , no scleral icterus. Oral mucous membrane is dry. No pharyngeal erythema or thrush NECK: Trachea central, no thyromegaly. LUNGS: Unlabored breathing. Clear to auscultation anteriorly. No wheeze or crackle. HEART: S1, S2, regular rate and rhythm. No loud murmur ABDOMEN: Soft, no tenderness , guarding or rigidity, no organomegaly EXTREMITIES: No edema of feet. SKIN: No rash, no masses palpable. NEUROLOGICAL: The patient is awake, alert, oriented x3, mood and affect normal. No signs of meningeal irritation Results CBC & Chem 7: 08/25/24 06:26 08/25/24 06:26 Labs: Abnormal Lab Results - Last 24 Hours (Table) 08/25/24 08/25/24 08/25/24 Range/Units 06:22 06:26 06:26 WBC 13.8 H (3.8-10.6) k/uL Neutrophils # 11.1 H (1.3-7.7) k/uL Sodium 130 L (137-145) mmol/L Chloride 97 L (98-107) mmol/L BUN 8 L (9-20) mg/dL Glucose 308 H (74-99) mg/dL POC Glucose (mg/dL) 309 H (70-110) mg/dL Ur Specific [place] (1.001-1.035) Urine Glucose (UA) (Negative) Ur Barbiturates Screen (NotDetected) U Benzodiazepines Scrn (NotDetected) U Marijuana (THC) Screen (NotDetected) 08/25/24 08/25/24 Range/Units 07:51 12:10 WBC (3.8-10.6) k/uL Neutrophils # (1.3-7.7) k/uL Sodium (137-145) mmol/L Chloride (98-107) mmol/L BUN (9-20) mg/dL Glucose (74-99) mg/dL POC Glucose (mg/dL) 236 H (70-110) mg/dL Ur Specific [place] 1.045 H (1.001-1.035) Urine Glucose (UA) 4+ H (Negative) Ur Barbiturates Screen Detected H (NotDetected) U Benzodiazepines Scrn Detected H (NotDetected) U Marijuana (THC) Screen Detected H (NotDetected) Assessment and Plan (1) Headache Current Visit: Yes Status: Acute Code(s): R51.9 - HEADACHE, UNSPECIFIED SNOMED Code(s): 62247772 (2) Leukocytosis Current Visit: Yes Status: Acute Code(s): D72.829 - ELEVATED WHITE BLOOD CELL COUNT, UNSPECIFIED SNOMED Code(s): 769674064 Plan: 1patient presented hospital with headache and this patient noted to have history of migraine headache current headache is typical of his migraine headache but slightly worse in intensity patient is not running any fever no nuchal rigidity underlying encephalitis less likely but not entirely excluded. 2patient has been evaluated by neurology LP has been ordered results will be followed. 3for now we will hold on adding any empiric antiviral or antibiotics as clinical suspicion is low for infectious etiology We will follow on clinical condition and cultures to further adjust medication if needed Thank you for this consultation we will follow the patient along with you Dictation was produced using [employer] software. please excuse any grammatical, word or spelling errors. Time with Patient: Greater than 30
[2024-08-26 08:31] LABS: Basophils # (A) 0.08 X 10*3/uL (0.00-0.10); Eosinophils # (A) 0.35 X 10*3/uL (0.04-0.35); Eosinophils % (A) 4.3 %; HCT 44.8 % (39.6-50.0); HGB 15.6 g/dL (13.0-17.0); Lymphocytes # (A) 3.71 X 10*3/uL (0.90-5.00); MCH 30.5 pg (27.0-32.0); MCHC 34.8 g/dL (32.0-37.0); MCV 87.7 FL (80.0-97.0); Mean Platelet Volume 11.2 FL (9.5-12.2); Monocytes # (A) 0.69 X 10*3/uL (0.20-1.00); Monocytes % (A) 8.6 %; NRBC Per 100 WBC 0 X 10*3/uL (0.00-0.01); Neutrophils # (A) 3.22 X 10*3/uL (1.80-7.70); Neutrophils % (A) 39.9 %; Platelet Count 294 X 10*3/uL (140-440); RBC 5.11 X 10*6/uL (4.40-5.60); RDW 12.7 % (11.5-14.5); WBC 8.07 X 10*3/uL (4.50-10.00)
[2024-08-26 08:43] LABS: BUN/Creat Ratio 10.67 Ratio (12.00-20.00); Blood Urea Nitrogen 9.6 mg/dL (9.0-27.0); Chloride 98 mmol/L (96-109); Glucose 242 mg/dL (70-110); Potassium 3.9 mmol/L (3.5-5.5); Sodium 131 mmol/L (135-145)
[2024-08-26 08:44] LABS: Calcium 8.7 mg/dL (8.7-10.3); Carbon Dioxide 23.4 mmol/L (21.6-31.8)
[2024-08-26] MEDS: INSULIN ASPART (NovoLOG) 100 UNIT/ML VIAL SQ SCH (08:50)
[2024-08-26] MEDS: DULoxetine HCL 30 MG CAPSULE.DR PO SCH (08:51)
[2024-08-26] MEDS: PANTOPRAZOLE 40 MG/10 ML VIAL IV SCH (08:51)
[2024-08-26] MEDS: ATORVASTATIN 40 MG TAB PO SCH (08:51)
[2024-08-26] MEDS: LINAGLIPTIN 5 MG TABLET PO SCH (08:51)
[2024-08-26 09:47] VITALS: RESP 16; TEMP 97.9
--- NOTE | 2024-08-26 12:11 | P.PN ---
Progress Note - Text Progress Note Date: 08/26/24 I talked, to the patient, and his regarding the need to do the lumbar puncture,(requested by neurology services ),and I explained to the patient, the risk VS the benefit of the lumbar puncture, patient refused to proceed with a lumbar puncture, his was to his side, and both of them agreed not to proceed.
[2024-08-26 12:14] LABS: Glucose,Whole Blood 174 mg/dL (70-110)
[2024-08-26 13:40] VITALS: BP 127/86; PULSE 78
--- NOTE | 2024-08-26 14:26 | P.PN ---
Subjective Progress Note Date: 08/26/24 Principal diagnosis: Reason for follow-up encephalopathy and leukocytosis Patient is a 59-year-old male with a past medical history significant for hypertension hyperlipidemia [place] migraine headache patient presenting to the hospital for evaluation of headache and apparently some mental status changes patient did have mild elevated white count prompted this consultation On today's evaluation that is 08/26/2024, the patient continues to be afebrile, the patient is on room air and breathing comfortably, the Pt denies having any chest pain or cough, the patient denies having any abdominal pain no vomiting or any diarrhea, patient mention resolution of his headache he did have a good night sleep and wants to go home patient did refuse LP this morning. Patient white count is 8.07, creatinine 0.9 Objective - Vital Signs Vital signs: Vital Signs Temp 97.9 F 08/26/24 07:09 Pulse 73 08/26/24 07:09 Resp 16 08/26/24 07:09 BP 162/91 08/26/24 07:09 Pulse Ox 94 L 08/26/24 07:09 FiO2 Intake & Output 08/25/24 08/26/24 08/26/24 18:59 06:59 18:59 Weight 87.543 kg Other: Voiding Method Toilet # Voids 2 - Exam GENERAL DESCRIPTION: Middle-age male lying in bed in no distress RESPIRATORY SYSTEM: Unlabored breathing , decreased breath sounds at bases HEART: S1 S2 regular rate and rhythm , ABDOMEN: Soft , no tenderness EXTREMITIES: No edema feet - Labs CBC & Chem 7: 08/26/24 05:14 08/26/24 05:14 Labs: Abnormal Lab Results - Last 24 Hours (Table) 08/25/24 08/25/24 08/25/24 Range/Units 12:10 15:43 23:33 Sodium (135-145) mmol/L BUN/Creatinine Ratio (12.00-20.00) Ratio Glucose (70-110) mg/dL POC Glucose (mg/dL) 236 H 243 H (70-110) mg/dL Folate 2.10 L (4.40-31.00) ng/mL 08/26/24 08/26/24 Range/Units 05:14 07:13 Sodium 131 L (135-145) mmol/L BUN/Creatinine Ratio 10.67 L (12.00-20.00) Ratio Glucose 242 H (70-110) mg/dL POC Glucose (mg/dL) 223 H (70-110) mg/dL Folate (4.40-31.00) ng/mL Assessment and Plan (1) Headache Current Visit: Yes Status: Acute Code(s): R51.9 - HEADACHE, UNSPECIFIED SNOMED Code(s): 84675157 (2) Leukocytosis Current Visit: Yes Status: Acute Code(s): D72.829 - ELEVATED WHITE BLOOD CELL COUNT, UNSPECIFIED SNOMED Code(s): 755412386 Plan: 1patient presented hospital with headache and this patient noted to have history of migraine headache current headache is typical of his migraine headache but slightly worse in intensity patient is not running any fever no nuchal rigidity underlying encephalitis less likely but not entirely excluded. 2patient did have overall improvement and resolution of his headache as well as leukocytosis without any antiviral or antibiotic therapy that will make infectious etiology less likely patient also has refused his LP, no need for antiviral or antibiotic at this point Dictation was produced using [employer] dictation software. please excuse any grammatical, word or spelling errors. Time with Patient: Less than 30
--- NOTE | 2024-08-26 17:18 | MR ---
EXAMINATION TYPE: MR brain wo/w con DATE OF EXAM: 08/26/2024 COMPARISON: Brain CT 08/25/2024 HISTORY: 59-year-old male AMS unknown etiology TECHNIQUE: Multiplanar, multisequence images of the brain and brainstem were acquired before and aft er administration of 9 mL IV Gadavist. Diffusion weighted imaging is performed. FINDINGS: Small 5 mm avidly enhancing extra-axial lesion along the paramedian floor of the right anterior crani al fossa. Otherwise, no evidence for acute infarction, hemorrhage, mass, mass effect, midline shift, herniation , effacement of basal cisterns, or extra-axial fluid collection. There is mild volume loss overlying the bilateral cerebral convexities. No hydrocephalus. Major intracranial flow voids are intact. However, there is small caliber to the vertebral and basila r arteries and persistent origin of the bilateral posterior cerebral arteries. Images and FLAIR weighted sequences show numerous prominent perivascular spaces throughout the cerebr al hemispheres. In addition, there is an old area of encephalomalacia measuring 1.9 x 1.0 cm within t he right lara radiata. Additional few foci of bright signal change in both cerebral hemispheres Midline structures demonstrate normal morphology. The craniocervical junction is normal. Post contrast images demonstrate no evidence of pathologic enhancement. Dural venous sinuses are pat ent. There is mild adenoid tonsillar hypertrophy. There is mucosal thickening ethmoid air cells. Slight le ftward nasal septal deviation. Fluid within the right mastoid air cells. Globes appear intact. IMPRESSION: 1. Tiny enhancing 5 mm extra-axial lesion, likely meningioma along the floor of the right anterior cr anial fossa. Recommend follow-up MRI in 6 months to reassess. 2. Mild generalized cerebral atrophy. Mild burden of chronic small vessel ischemic disease but with a n old white matter infarct within the right lara radiata. 3. No enhancing lesions or acute intracranial abnormality seen. 4. Fluid within the right mastoid air cells. Correlate for any mastoid pain to exclude mastoiditis [facility], , 08/26/2024 5:16 PM
[2024-08-26 19:27] LABS: HSV I IgG Interp POSITIVE; HSV II IgG Interp Negative (Negative)
--- NOTE | 2024-08-27 10:21 | P.DS ---
Providers Date of admission: 08/25/24 09:59 Expected date of discharge: 08/26/24 Attending physician: Jak Bales Consults: 08/25/24 09:25 Consult Physician Urgent Consulting Provider: Nicola Dasilva Consult Reason/Comments: Altered mental status, fever, elev wbc, lp? Do you want consulting provider notified?: Yes 08/25/24 10:57 Consult Physician Urgent Consulting Provider: Santos Landaverde Consult Reason/Comments: fevers, ams, leukocytosis Do you want consulting provider notified?: Yes 08/25/24 14:01 Consult Physician Routine Consulting Provider: Santos Landaverde Consult Reason/Comments: encephalopathy Do you want consulting provider notified?: Yes Primary care physician: Renée Vernon Hospital Course: Final diagnosis Headache, likely secondary to migraine with history of migraines Leukocytosis, possibly secondary to mastoiditis as noted on MRI Acute metabolic encephalopathy, unknown etiology, improved and baseline per significant other at bedside Hyponatremia, improved with gentle hydration History of anxiety Hypertension history Hyperlipidemia history History of coronary artery disease with stenting THC use History of scoliosis with chronic back pain GI prophylaxis DVT prophylaxis Full code Discharge disposition Patient is being discharged in a stable condition with guarded prognosis to home. Patient will follow-up with Ceci Morse NP with Dr. Renée Vernon in the outpatient setting upon discharge. Patient is to continue with oral Augmentin twice daily for 5 days and strongly recommend outpatient follow-up with neurologist as scheduled. Total time taken is greater than 35 minutes. Hospital course This is a 59-year-old male who was recently admitted with altered mentation with headache and leukocytosis of undetermined etiology being closely monitored. Patient started on antibiotics empirically as well as being followed by infectious disease undergoing workup and neuro including an MRI of the brain. 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 There is fluid within the right mastoid air cells suggestive of possible mastoiditis within the differential. Patient reports to feeling improved and white count has normalized and neurology performed EEG with no epileptiform discharge noted with suggestions of mild encephalopathy. LP was also suggested although patient does not want to proceed and reports will follow-up with primary care provider as well as neurology outpatient. Patient instructed to monitor for any further fevers or altered mentation and call 911 or report to the nearest ER. Significant other at the bedside with questions and concerns that were answered to the best of our ability. Please refer to other consultation notes for further HPI. Patient is adamant about leaving and going home today. Currently no reports of chest pain, shortness of breath, or palpitations. Patient is afebrile. No reports of nausea or vomiting and patient is tolerating diet. Patient will be discharged home today. Guarded prognosis and high risk for readmissions. Physical exam: Gen: This is a 59-year-old male who is awake, alert and oriented x 3, well- developed, elderly appearing HEENT: Head is atraumatic, normocephalic. Pupils equal, round. Sclerae is anic teric. NECK: Supple. No JVD. No lymphadenopathy. No thyromegaly. LUNGS: Clear to auscultation. No wheezes or rhonchi. No intercostal retractions. HEART: S1, S2 are muffled ABDOMEN: Soft. Bowel sounds are present. No masses. No tenderness. EXTREMITIES: No pedal edema. No calf tenderness. NEUROLOGICAL: Patient is awake, alert and oriented x3. Cranial nerves 2 through 12 are grossly intact. Please refer to medication reconciliation sheet for a list of medications. The impression and plan of care has been dictated by Luciana Mixon, Nurse Practitioner as directed. Dr. Nii MD I have performed a history and examination and MDM of this patient, discussed the same with the dictator, and agree with the dictator's assessment and plan as written ,documented as a scribe. Based on total visit time, I have performed more than 50% of the visit. Patient Condition at Discharge: Fair Plan - Discharge Summary Discharge Rx Participant: No New Discharge Prescriptions: New Amoxic-Pot Clav 875-125Mg [Augmentin 875-125] 1 tab PO Q12HR 5 Days #10 tab Ibuprofen [Motrin] 400 mg PO Q6HR PRN tab PRN Reason: Mild Pain Or Fever > 100.5 Acetaminophen Tab [Tylenol] 650 mg PO Q6HR PRN tab PRN Reason: Mild Pain Or Fever > 100.5 Continue LORazepam [Ativan] 2 mg PO BID Rosuvastatin [Crestor] 20 mg PO DAILY Pregabalin [Lyrica] 150 mg PO BID Linagliptin [Tradjenta] 5 mg PO DAILY DULoxetine HCL [Cymbalta] 30 mg PO DAILY Discharge Medication List LORazepam [Ativan] 2 mg PO BID 12/29/15 [History] DULoxetine HCL [Cymbalta] 30 mg PO DAILY 08/25/24 [History] Linagliptin [Tradjenta] 5 mg PO DAILY 08/25/24 [History] Pregabalin [Lyrica] 150 mg PO BID 08/25/24 [History] Rosuvastatin [Crestor] 20 mg PO DAILY 08/25/24 [History] Acetaminophen Tab [Tylenol] 650 mg PO Q6HR PRN tab 08/26/24 [Rx] Amoxic-Pot Clav 875-125Mg [Augmentin 875-125] 1 tab PO Q12HR 5 Days #10 tab 08/26/24 [Rx] Ibuprofen [Motrin] 400 mg PO Q6HR PRN tab 08/26/24 [Rx] Follow up Appointment(s)/Referral(s): Ceci Morse NPC [Nurse Practitioner] - 08/28/24 2:30 pm Bernadette Calhoun MD [Medical Doctor] - 1 Week (please call the office to schedule a follow up appointment) Patient Instructions/Handouts: Amoxicillin/Clavulanate Potassium (By mouth), Migraine Headache (ED), Altered Mental Status (GEN), Lumbar Puncture (DC) Activity/Diet/Wound Care/Special Instructions: Activity limited until follow-up Follow-up with primary care provider on discharge Follow-up with neurology outpatient Continue taking medications as prescribed If you have any worsening symptoms or fever, recommend following up with your primary care provider or calling 911 or ER Discharge Disposition: HOME SELF-CARE
== END 2024-08-26 17:10 | disposition home or self-care (01) ==
LOC: EC 05:52 → 5NMEDONC 09:59
PROVIDERS: ADMIT Hospitalist; ATTEND Hospitalist
DX: R51.9 Headache, unspecified (principal); G93.41 Metabolic encephalopathy; D72.829 Elevated white blood cell count, unspecified; E11.9 Type 2 diabetes mellitus without complications; G89.29 Other chronic pain; M54.9 Dorsalgia, unspecified; I25.10 Atherosclerotic heart disease of native coronary artery without angina pectoris; E87.1 Hypo-osmolality and hyponatremia; I10 Essential (primary) hypertension; E78.5 Hyperlipidemia, unspecified; F41.9 Anxiety disorder, unspecified; I25.2 Old myocardial infarction; F12.90 Cannabis use, unspecified, uncomplicated; M41.9 Scoliosis, unspecified; Z11.52 Encounter for screening for COVID-19; Z86.73 Personal history of transient ischemic attack (TIA), and cerebral infarction without residual deficits; Z87.891 Personal history of nicotine dependence; Z95.5 Presence of coronary angioplasty implant and graft; Z79.84 Long term (current) use of oral hypoglycemic drugs; Z79.899 Other long term (current) drug therapy
CPT/HCPCS: 96375 ×2; 96361; 96365; 96372; 99285; 36415; 95816; 93005; 85379; 80053; 80048; 85652; 84443; 82607; 82140; 82746; 83605; 83735; 84100; 84484; 85025 ×2; 85610; 85730; 86140; 81003; 86695; 86696; 80306; 80320; 87636; 71045; 70496; 70450; 70498; 70553; G0378 ×2; J0780; J1644; J2405; J0131; Q9967; A9585; J2470; 87529